=== PATIENT | male | born 1980 | race Caucasian/White ===

== ENCOUNTER 2023-08-03 08:12 | Outpatient (OUT) | payer OTHER, SELFPAY ==
[2023-08-03 08:52] LABS: Basophils Absolute Auto 0.1 10^3/uL (0.0-0.1); Basophils Percent Auto 0.8 % (0.2-2.0); Eosinophils Absolute Auto 0.4 10^3/uL (0.0-0.7); Eosinophils Percent Auto 4.4 % (0.9-7.0); Hematocrit 44.6 % (42.0-54.0); Hemoglobin 14.3 g/dL (14.0-18.0); Immature Granulocytes Abs Auto 0.05 10^3/uL (0.00-0.03); Immature Granulocytes Pct Auto 0.6 % (0.0-0.5); Lymphocytes Absolute Auto 2.1 10^3/uL (1.2-3.8); Lymphocytes Percent Auto 24.2 % (20.5-60.0); Mean Corpuscular HGB Conc 32.1 g/dL (29.9-35.2); Mean Corpuscular Hemoglobin 26.5 pg (25.9-34.0); Mean Corpuscular Volume 82.6 fL (80.0-94.0); Mean Platelet Volume 10.1 fL (9.5-13.5); Monocytes Absolute Auto 0.6 10^3/uL (0.3-0.8); Monocytes Percent Auto 7.1 % (1.7-12.0); Neutrophils Absolute Auto 5.6 10^3/uL (1.4-6.5); Neutrophils Percent Auto 62.9 % (43.0-75.0); Platelet Count 231 10^3/uL (150-450); White Blood Count 8.8 10^3/uL (4.0-11.0)
[2023-08-03 09:11] LABS: Creatinine Urine Random 56.86 mg/dL (20.00-300.00); Microalbum Creatinine Ratio Ur 22.8 mg/g (0.0-29.9); Microalbumin Urine Random <1.3 mg/dL (<=30.0)
[2023-08-03 09:14] LABS: Prostate Specific Antigen Dx 3.15 ng/mL (<=4.00)
[2023-08-03 10:36] LABS: Alanine Aminotransferase 44 U/L (16-63); Albumin Globulin Ratio 0.9; Albumin Level 3.8 g/dL (3.4-5.0); Alkaline Phosphatase 99 U/L (46-116); Aspartate Amino Transferase 16 U/L (15-37); BUN Creatinine Ratio 13.5; Bilirubin Total 0.8 mg/dL (0.2-1.0); Calcium 9.1 mg/dL (8.5-10.1); Carbon Dioxide 30.2 mmol/L (21.0-32.0); Chloride 101 mmol/L (98-107); Chol HDL Ratio 3.9; Cholesterol 177 mg/dL (<=200); Estimated GFR (African America >60 (>=60); Estimated GFR (Non-African Ame >60 (>=60); Globulin 4.3 g/dL; Glucose 99 mg/dL (74-106); HDL Cholesterol 45 mg/dL (40-60); LDL Cholesterol Calculated 125.4 mg/dL; Potassium 4.2 mmol/L (3.5-5.1); Sodium 138 mmol/L (136-145); Thyroid Stimulating Hormone 1.843 uIU/mL (0.358-3.740); Total Protein 8.1 g/dL (6.4-8.2); Triglycerides 33 mg/dL (<=150); VLDL CHOLESTEROL 6.6 mg/dL
[2023-08-04 04:07] LABS: PSA, Free 0.37 ng/mL; Prostate Specific Ag 2.8 ng/mL (0.0-4.0)
== END 2023-08-03 08:13 | disposition home or self-care (01) ==
PROVIDERS: PCP Nurse Practitioner; Visit Provider Nurse Practitioner
DX: N20.0 Calculus of kidney (principal); I10 Essential (primary) hypertension; E66.01 Morbid (severe) obesity due to excess calories; Z12.5 Encounter for screening for malignant neoplasm of prostate; R97.20 Elevated prostate specific antigen [PSA]; Z80.42 Family history of malignant neoplasm of prostate
CPT/HCPCS: 36415; 80053; 80061; 82043; 82570; 84153; 84154; 84443; 85025

== ENCOUNTER 2024-05-18 01:15 | Emergency (ER) | payer OTHER, SELFPAY ==
[2024-05-18 01:18] VITALS: BP 185/104; PULSE 103; TEMP 36.5; O2SAT 100; BMI 50.9
--- OUTSIDE RECORDS SUMMARY | 2024-05-18 01:23 | XMS_ITS | CCD ---
Author Organization [facility] ion [facility] Care Team Providers Care Emotional Support Teacher Name Role Phone BLAINE TOSHIA Paula Primary Care Physician KARLASENG, [facility] TOSHIA Primary Care Unavailable FRANK, DR CK López Admitting Unavailable FRANK, DR CK López Attending Unavailable FRANK, DR CK López Consulting Unavailable KELVIN CASIANO Consulting Unavailable COOK, DR MARCIAL Bundy Admitting Unavailable COOK, DR MARCIAL Bundy Attending Unavailable [facility] T[facility]IA Primary Care Unavailable COOK, DR MARCIAL Bundy Consulting Unavailable DAVIS, DR RY Cantor Consulting Unavailable BROWN, RY Consulting Unavailable COOK, DR MARCIAL Bundy Admitting Unavailable COOK, DR MARCIAL Bundy Attending Unavailable AICHHOLZ, [facility] TOSHIA Primary Care Unavailable COOK, DR MARCIAL Bundy Consulting Unavailable ZIEBER, DR ALLIE López Consulting Unavailable COOK, Marcial Bundy Attending Unavailable COOK, Marcial P Attending Unavailable COOK, Marcial P Attending Unavailable COOK, Marcial P Attending Unavailable COOK, Marcial P Attending Unavailable COOK, Marcial P Admitting Unavailable COOK, Marcial P Admitting Unavailable COOK, Marcial P Referring Unavailable COOK, Marcial P Attending Unavailable Jevon Holley MD Primary Care Provider [phone] Aicholdominique COLUMNIST/COMMENTATOR, Toshia Unavailable BLAINE, TOSHIA Attending Unavailable Aichholz COLUMNIST/COMMENTATOR, Toshia Unavailable Jevon Holley MD Primary Care Provider [phone] Aicholdominique COLUMNIST/COMMENTATOR, Toshia Unavailable Allergies Allergy Classification Reported Allergen(s) Allergy Type Date of Onset Reaction(s) Facility (1 source) No Known Medication Allergies; Translations: [No Known Medication Allergies] Propensity to adverse reactions (disorder) [facility] Repository Medications Current Medications Medication Drug Class(es) Dates Sig (Normalized) Sig (Original) acetaminophen 325 mg / oxyCODONE hydrochloride 5 mg oral tablet (3 sources) Opioid Agonist Start: 09-14-2021 take 1 tablet by mouth every six hours as needed for pain acetaminophen-oxy codone 325 mg-5 mg oral tablet 1 tab(s), Oral, q6hr as needed for pain, Refill(s) 0 Start Date: 09/14/21 Status: Ordered amLODIPine 10 mg oral tablet (17 sources) Dihydropyridine Calcium Channel Dhara Start: 01-21-2024 End: 07-18-2024 take 1 tablet by mouth once daily amLODIPine (Norvasc) 10 MG tablet Indications: Essential hypertension (CMS/HCC) Take 1 tablet (10 mg) by mouth Daily 90 tablet 04/19/2024 07/18/2024 Active Start: 05-13-2023 End: 08-11-2023 take 1 tablet by mouth in the morning amLODIPine (Norvasc) 10 MG tablet Indications: Essential (primary) hypertension (CMS/HCC) , Essential hypertension (CMS/HCC) Take 1 tablet (10 mg) by mouth in the morning. 90 tablet 0 05/13/2023 08/11/2023 Active Start: 09-14-2021 take 1 tablet by jessica th once daily amLODIPine 5 mg Tab 5 mg = 1 tab(s), Oral, Daily, Refills(s) 0, High blood pressure Start Date: 09/14/21 Status: Ordered ascorbic acid 1000 mg oral tablet (3 sources) Vitamin C take 1 tablet by mouth once daily Ascorbic Acid (vitamin C) 1000 MG tablet Take 1,000 mg by mouth Daily Active ciprofloxacin 500 mg oral tablet (3 sources) Quinolone Antimicrobial Start: take 1 tablet by mouth every twelve hours ciprofloxacin 500 mg Tab 500 mg = 1 tab(s), Oral, q12hr, Refills(s) 0, Infection or prophylaxis for antibiotics Start Date: 09/14/21 Status: Ordered Fish Oils (9 sources) Start: take 1 capsule by mouth once daily Fish Oil 500 mg oral capsule 500 mg = 1 cap(s), Oral, Daily, Prophylaxis Start Date: 11/04/21 Status: Ordered hydroCHLOROthiazide 25 mg / metoprolol tartrate 100 mg oral tablet (12 sources) Thiazide Diuretic, beta-Adrenergic Dhara Start: take 1 tablet by mouth twice daily hydrochlorothiazide -metoprolol 25 mg-100 mg oral tablet 1 tab(s), Oral, BID, Refill(s) 0, High blood pressure Start Date: 09/14/21 Status: Ordered hyoscyamine sulfate 0.125 mg oral tablet (2 sources) Start: take 1 tablet by mouth four times daily Levsin 0.125 mg SL Tab 0.125 mg = 1 tab(s), Oral, QID, # 20 tab(s), Refills(s) 0, Pharmacy: [facility]/pharmacy #[id number], 184, cm, 09/15/21 16:31:00 EDT, Height/Length Dosing, 170.4, kg, 09/15/21 16:31:00 EDT, Weight Dosing Start Date: 09/16/21 Status: Ordered Start: 09-14-2021 take 1 tablet by jessica th four times daily as needed for muscle spasms Levsin 0.125 mg oral tablet 0.125 mg = 1 tab(s), Oral, QID, PRN for spasm, # 10 tab(s), Refills(s) 0, Pharmacy: [facility]/pharmacy #[id number], 184, cm, 09/14/21 8:22:00 EDT, Height/Length Dosing, 173.4, kg, 09/14/21 8:22:00 EDT, Weight Dosing Start Date: 09/14/21 Status: Ordered ketorolac tromethamine 10 mg oral tablet (2 sources) Nonsteroidal Anti-inflammatory Drug, Cyclooxygenase Inhibitor Start: 09-16-2021 ketorolac 10 mg Tab 10 mg = 1 tab(s), Oral, q6hr, PRN Pain 8-10, # 20 tab(s), Refills(s) 0, Pharmacy: [facility]/pharmacy #[id number], 184, cm, 09/15/21 16:31:00 EDT, Height/Length Dosing, 170.4, kg, 09/15/21 16:31:00 EDT, Weight Dosing Start Date: 09/16/21 Status: Ordered Start: 09-14-2021 ketorolac 10 m g Tab 10 mg = 1 tab(s), Oral, q6hr, PRN Pain 8- 10, # 20 tab(s), Refills(s) 0, Pharmacy: [facility]/pharmacy #[id number], 184, cm, 09/14/21 8:22:00 EDT, Height/Length Dosing, 173.4, kg, 09/14/21 8:22:00 EDT, Weight Dosing Start Date: 09/14/21 Status: Ordered lisinopril 40 mg oral tablet (15 sources) Angiotensin Converting Enzyme Inhibitor Start: 07-25-2023 End: 07-17-2024 take 1 tablet by mouth once daily lisinopril 40 MG tablet Indications: Essential hypertension (CMS/HCC) Take 1 tablet (40 mg) by mouth Daily 90 tablet 04/18/2024 07/17/2024 Active Start: 09-14-2021 take 1 tablet by jessica once daily lisinopril 40 mg Tab 40 mg = 1 tab(s), Oral, Daily, Refills(s) 0, High blood pressure Start Date: 09/14/21 Status: Ordered 24 hr metoprolol succinate 50 mg extended release oral tablet (10 sources) beta-Adrenergic Dhara Start: 01-21-2024 End: 07-18-2024 take 1 tablet by mouth once daily metoprolol succinate XL (Toprol-XL) 100 MG 24 hr tablet Indications: Essential hypertension (CMS/HCC) Take 1 tablet (100 mg) by mouth Daily 90 tablet 04/19/2024 07/18/2024 Active Start: 01-21-2024 End: 07-18-2024 take 1 tablet by mouth every twenty-four hours in the morning metoprolol succinate XL (Toprol-XL) 50 MG 24 hr tablet Indications: Essential hypertension (CMS/HCC) Take 1 tablet (50 mg) by mouth in the morning. 90 tablet 04/19/2024 07/18/2024 Active Start: 05-13-2023 End: 08-11-2023 take 1 tablet by mouth every twenty-four hours in the morning metoprolol succinate XL (Toprol-XL) 100 MG 24 hr tablet Indications: Essential (primary) hypertension (CMS/HCC) , Essential hypertension (CMS/HCC) Take 1 tablet (100 mg) by mouth in the morning. 90 tablet 0 05/13/2023 08/11/2023 Active Start: 05-13-2023 End: 08-11-2023 take 1 tablet by mouth every twenty-four hours in the morning metoprolol succinate XL (Toprol-XL) 50 MG 24 hr tablet Indications: Essential (primary) hypertension (CMS/HCC) , Essential hypertension (CMS/HCC) Take 1 tablet (50 mg) by mouth in the morning. 90 tablet 0 05/13/2023 08/11/2023 Active Multiple Vitamin (ONE-A-DAY MENS PO) (3 sources) Multiple Vitamin (ONE-A-DAY MENS PO) Take by mouth Active Multivitamin preparation (9 sources) Start: 2 take 1 capsule by mouth once daily multivitamin 1 cap, Oral, Daily, Prophylaxis Start Date: 11/04/21 Status: Ordered [place]-3 Fatty Acids (Fish Oil) 1000 MG capsule delayed-release (3 sources) [place]-3 Fatty Ac ids (Fish Oil) 1000 MG capsule delayed-release Take by mouth Active phenazopyridine hydrochloride 100 mg oral tablet (1 source) Start: 2 End: 2 take 1 tablet by mouth twice daily Pyridium 100 mg Tab 100 mg = 1 tab(s), Oral, BID, X 10 day(s), # 20 tab(s), Refills(s) 0, Pharmacy: [facility]/pharmacy #[id number], 184, cm, 09/15/21 16:31:00 EDT, Height/Length Dosing, 170.4, kg, 09/15/21 16:31:00 EDT, Weight Dosing Start Date: 09/16/21 Stop Date: 09/26/21 Status: Ordered tamsulosin hydrochloride 0.4 mg oral capsule (3 sources) alpha-Adrenergic Dhara Start: 2 take 1 capsule by mouth once daily tamsulosin 0.4 mg Cap 0.4 mg = 1 cap(s), Oral, Daily, Refills(s) 0, Other (see comment) Start Date: 09/14/21 Status: Ordered Problems Active Problems Problem Classification Problem Date Documented Da te Episodic/Chronic Essential hypertension (20 sources) Hypertensive disorder; Translations: [Essential (primary) hypertension] Onset: 09-14-2021 09-15-2021 Chronic Other diseases of kidney and ureters (1 source) Urinary tract obstruction; Translations: [Hydronephrosis with renal and ureteral calculous obstruction] Onset: 06-14-2022 Episodic Other injuries and conditions due to external causes (3 sources) Foreign body in bladder; Translations: [Foreign body in bladder, initial encounter] Onset: 08-15-2022 Episodic Other nutritional; endocrine; and metabolic disorders (3 sources) Morbid obesity; Translations: [Morbid (severe) obesity due to excess calories] Onset: 07-25-2023 07-25-2023 Chronic Past or Other Problems Problem Classification Problem Date Documented Da te Episodic/Chronic Abdominal pain (3 sources) Unspecified abdominal pain; Translations: [UNSPECIFIED ABDOMINAL PAIN] Onset: 09-12-2021 Episodic Calculus of urinary tract (20 sources) Kidney stone; Translations: [Calculus of kidney] Onset: 09-14-2021 Episodic Other aftercare (1 source) Other terminal computer operator (current) drug therapy; Translations: [OTH ACCOUNTING CONSULTANT CURRENT DRUG THERAPY] Onset: 09-14-2021 Episodic Other diseases of kidney and ureters (11 sources) Hydronephrosis; Translations: [Hydronephrosis with ureteral stricture, not elsewhere classified] Onset: 02-08-2022 Episodic Other screening for suspected conditions (not mental disorders or infectious disease) (6 sources) Patient encounter status; Translations: [Encounter for screening for malignant neoplasm of prostate] Onset: 07-25-2023 07-25-2023 Episodic Residual codes; unclassified (3 sources) Family history of prostate cancer; Translations: [Family history of malignant neoplasm of prostate] Onset: 08-03-2023 08-03-2023 Episodic Results Test Name Value Interpretation Reference Range Facility Consent for Procedure/Surger yon 08-15-2022 Consent for Procedure/Surgery [id number]: 127 Normal [facility] Patient Educationon 08-16-19 Patient Education Urology Kidney Stones Kidney stones are rock-like masses that form inside of the kidneys. Kidneys are organs that make pee (urine). A kidney stone may move into other parts of the urinary tract, including: ? The tubes that connect the kidneys to the bladder (ureters). ? The bladder. ? The tube that carries urine out of the body (urethra). Kidney stones can cause very bad pain and can block the flow of pee. The stone usually leaves your body (passes) through your pee. You may need to have a doctor take out the stone. What are the causes? Kidney stones may be caused by: ? A condition in which certain glands make too much parathyroid hormone (primary hyperparathyroidism). ? A buildup of a type of crystals in the bladder made of a chemical called uric acid. The body makes uric acid when you eat certain foods. ? Narrowing (stricture) of one or both of the ureters. ? A kidney blockage that you were born with. ? Past surgery on the kidney or the ureters, such as gastric bypass surgery. What increases the risk? You are more likely to develop this condition if: ? You have had a kidney stone in the past. ? You have a family history of kidney stones. ? You do not drink enough water. ? You eat a diet that is high in protein, salt (sodium), or sugar. ? You are overweight or very overweight (obese). What are the signs or symptoms? Symptoms of a kidney stone may include: ? Pain in the side of the belly, right below the ribs (flank pain). Pain usually spreads (radiates) to the groin. ? Needing to pee often or right away (urgently). ? Pain when going pee (urinating). ? Blood in your pee (hematuria). ? Feeling like you may vomit (nauseous). ? Vomiting. ? Fever and chills. How is this treated? Treatment depends on the size, location, and makeup of the kidney stones. The stones will often pass out of the body through peeing. You may need to: ? Drink more fluid to help pass the stone. In some cases, you may be given fluids through an IV tube put into one of your veins at the hospital. ? Take medicine for pain. ? Make changes in your diet to help keep kidney stones from coming back. Sometimes, medical procedures are needed to remove a kidney stone. This may involve: ? A procedure to break up kidney stones using a beam of light (laser) or shock waves. ? Surgery to remove the kidney stones. Follow these instructions at home: Medicines ? Take nfno-lfh-pmqeguj and prescription medicines only as told by your doctor. ? Ask your doctor if the medicine prescribed to you requires you to avoid driving or using heavy machinery. Eating and drinking ? Drink enough fluid to keep your pee pale yellow. You may be told to drink at least 8?10 glasses of water each day. This will help you pass the stone. ? If told by your doctor, change your diet. This may include: ? Limiting how much salt you eat. ? Eating more fruits and vegetables. ? Limiting how much meat, poultry, fish, and eggs you eat. ? Follow instructions from your doctor about eating or drinking restrictions. General instructions ? Collect pee samples as told by your doctor. You may need to collect a pee sample: ? 24 hours after a stone comes out. ? 8?12 weeks after a stone comes out, and every 6?12 months after that. ? Strain your pee every time you pee (urinate), for as long as told. Use the strainer that your doctor recommends. ? Do not throw out the stone. Keep it so that it can be tested by your doctor. ? Keep all follow-up visits as told by your doctor. This is important. You may need follow-up tests. How is this prevented? To prevent another kidney stone: ? Drink enough fluid to keep your pee pale yellow. This is the best way to prevent kidney stones. ? Eat healthy foods. ? Avoid certain foods as told by your doctor. You may be told to eat less protein. ? Stay at a healthy weight. Where to find more information ? National Kidney Foundation (NKF): www.kidney.org ? [employer] (UCF): www.urologyhealth.org Contact a doctor if: ? You have pain that gets worse or does not get better with medicine. Get help right away if: ? You have a fever or chills. ? You get very bad pain. ? You get new pain in your belly (abdomen). ? You pass out (faint). ? You cannot pee. Summary ? Kidney stones are rock-like masses that form inside of the kidneys. ? Kidney stones can cause very bad pain and can block the flow of pee. ? The stones will often pass out of the body through peeing. ? Drink enough fluid to keep your pee pale yellow. This information is not intended to replace advice given to you by your health care provider. Make sure you discuss any questions you have with your health care provider. Document Revised: 11/22/2021 Document Reviewed: 11/22/2021 [employer] Patient Education ? 2022 [employer] Normal [facility] Urology Office/Clinic Noteon 08-15-2022 Urology Office/Clinic Note Chief Complaint Cysto/Lt. stent removal HPI Staff Cysto/Lt stent removal. ABX taken. KUB done 07/07/22 shows question 3-4 mm calculus along the distal left ureteral stent. Left renal calculi. No BPH medications. History of Present Illness I have reviewed and verified the staff HPI to be accurate for this encounter. Review of Systems PHQ Score Initial Depression Screen Score: 0 ROS - Provider Constitutional: denies weight loss, denies hot flashes. Eyes: denies eye problems. Gastrointestinal: denies nausea, denies vomiting. Cardiovascular: denies chest pain or angina. Integumentary: no dryness Musculoskeletal: denies musculoskeletal symptoms. ENMT: denies otolaryngeal symptoms. Respiratory: no shortness of breath. Heme/Lymph: denies easy bleeding tendency, denies easy bruising tendency. Psychiatric: no confusion, no anxiety. Genitourinary: denies dysuria, denies hematuria, denies discharge, denies urinary frequency, denies urinary hesitancy, denies nocturia, denies incontinence, denies genital sores, denies decreased libido, and denies erectile dysfunction. Physical Exam Vitals & Measurements HT: 72 in HT: 184 cm WT: 175 kg WT: 385 lb BMI: 51.69 General Appearance: alert, no distress, well nourished, well developed male. Genitourinary: normal scrotum, normal testes, normal urethra, normal epididymis, normal vas deferens/spermatic cord. Flank Pain: none. Bladder: nonpalpable. Procedure Operative Information Anesthesia Type: Local Procedure: Local Cystoscopy with Stent Removal Complications: None Surgical risks, benefits, details of the procedure have been explained to the patient. Full informed consent has been obtained. Intraoperative Information Prepped: Patient is placed in supine position. The patient was prepped with the Betadine solution. Anesthesia: 2% Xylocaine Jelly per urethra. Procedure: Cystoscopy and left stent removal. The flexible Cystoscope was passed in retrograde fashion into the bladder without difficulty. The bladder was viewed in entirety and found to be without tumors or stones. Mild inflammation was seen surrounding the orifice with the stent seen protruding from it. The stent was then grasped and removed in its entirety. Specimens Removed: None Postoperative Information The patient tolerated the procedure well and was subsequently discharged home. Assessment/Plan 1. Hydronephrosis due to obstruction of ureter (N13.1: Hydronephrosis with ureteral stricture, not elsewhere classified) PO to Cysto/L ESWL/L Stent change done 06/09/22 S/p Cysto/Left ESWL/stent done 12/23/21. KUB done 02/02/22 shows apparent migration of proximal left ureteral stone to the distal third of the left ureter. Pt states that he is tolerating the stent well. 2. Kidney stones (N20.0: Calculus of kidney) S/p Cysto/Left ESWL/stent done 12/23/21. KUB done 02/02/22 shows apparent migration of proximal left ureteral stone to the distal third of the left ureter. Stone analysis done 04/29/2022 showed Ca OX Monohydrate 75%, Ca Ox Dihydrate 20% AND hydroxyapatite 5%. 3. Foreign body in bladder (T19.1XXA: Foreign body in bladder, initial encounter) Cysto/Stent removal done IO today w/o complications. Overall the patient tolerates the stent removal quite well. He has passed at least 2 fragments so we assume that the stone has completely and get out of the ureter. Stent is removed without difficulty. We will see him in 6 months with a KUB. He already has the request sent for the 24-hour urine analysis and he will get the blood work at [facility] as well at his convenience. Depending on findings we may have to discuss results of the metabolic work-up prior to his 6-month visit. He will finish antibiotics today and tomorrow for antibiotic prophylaxis Follow-up With When Contact Information JAIME DAO, Marcial Bundy, CHLOE In 6 months 02/15/[address] [place] [id number] Additional Instructions: KUB Metabolic work-up Patient Education Kidney Stones, [id number] Raina Thomas , personally scribed for Dr. Sandoval on 08/15/2022 07:27:12. . Documentation recorded by the Raina moreno MA, accurately reflects the services(s) I performed and decisions made by me. Authenticated by Dr. Sandoval on 08/15/2022 07:28:28. Problem List/Past Medical History Ongoing Foreign body in bladder Hydronephrosis due to obstruction of ureter Kidney stones Historical No qualifying data Procedure/Surgical History Cystoscopic insertion of ureteric stent (06/09/2022), ESWL - Extracorporeal shockwave lithotripsy for renal calculus (12/23/2021), Cystoscopy (09/16/2021), Breast reduction, Closed fracture head of femur, Cyst. Medications amLODIPine 5 mg Tab, 5 mg= 1 tab(s), Oral, Daily Fish Oil 500 mg oral capsule, 500 mg= 1 cap(s), Oral, Daily hydrochlorothiazide-meto prolol 25 mg-100 mg oral tablet, 1 tab(s), Oral, BID (more content not included)... [facility] Comment on above: Result Comment: Elec tronically Signed By: Marcial SANDOVAL MD\.br\Date and Time Signed: 08/15/22 07:29 EDT\.br\Electronically Co-Signed By: Raina Velarde MA\.br\Date and Time Co-Signed: 08/15/22 07:27 EDT Pre-Certification Formon Pre-Certification Form [id number]#[id number]:1 27 [facility] Coding Summary.on 07-14-2022 Coding Summary. CD:[id number] Ww+P GhlYWQ+FW4XAOVeH94lqOTcb C7eY8HQLXoSZfxkBDHIWTnVR wAjwkJbHS5oiPBfMEBw IC8+JT9nGIQhZbrrhZIwj5S7 nRO7B57jcx8gMVmtyBL6IAHn QuLctbavj7obqDk1NEobPfhm OyBt NRTqlY27OYW2dF76Ta77jXQe pEIca1xmbJa5PhRyTTFsUAQ9 lWniZMmcs4BdURWrS01wtLOy c2U6 EIMddZphtBOxZsGizIS2dG4w CLeyflawp8mpbnhvIco4tx42 gOBjo4B2uXW8M0TeroQ5NXMi bGQg ZyqvvQFGhO7rnneaz9iudwtr XmJuCJPpNFv1LRe2GRKpxQwa FrVxZO91PSD6RJFhltFvV1Kl LWFs kYwvFrJ0d5N5Os9KH8MVDdch W6SUONYKSQtptPE+BZ32jw54 W3OwQvcuJkh6AFPwRIS7yQQ1 aD0n FJIkAHroi4C8hPJ6I0OyfkTy tb8gq7vzLIYyUKelC99hkBWt g0Q1WJHcgTP7RRXadQpbNlJb aG93 Oyc+UVUuuGmsw8JdNlffa6mn j7qidBw6HidvKXJzgqZptVdc PLO1y4ZoIa7iFOGioJP2jYT6 aD0i RcTsNmE6GHkpN685IqGyuUEv SslxC86uV9WqpQC+PHRyPjx0 HEUbeBmtYF6uT4PsHCMngwlt bGVm yKkuOW4hCBIljfbkXZGwkP9x ZCBcR2i3ImYsMvH3MQfmV0Yr SSZnyfuzEg90iE4fMkYcOyE7 MGlu H7BhdzO6XPUzbWPvWGczAII3 T10aj5V6XBMdOSPgAML6kPO4 fU5idUbalbwbmCNglLhmjgMu dGlj YKvbDRxxY556YNLjjXhbKuNk ZGluZyBEYXRlOiAgMDQvMTMv MjAyMzwvdGQ+JEMoIDN9wZnk PSAn uYPaOXcqNc2onUkvzQooRV6l XXUnwbtuTVIuiD0zQXNpyVDx yThxSK5cJXImpvsnc249HdZt MHB0 QZKcvTLfE7YuoQ4qPvZnEJFd TDPlR5IhyQWaJQzbX145EWbv GoT3XDCnsaBrL6OkEQGljChx OiB0 w1P8Fn6Ms7MwbwaiX3UpwGRi XoLnLxspXDe0G9TzHdwceYN+ KX18SVNyAY14EOw0YGU3yLdb PSdi MVOqU2CxzV9zYnWxMCQiHRQm Oyc+PHRhYmxlIHdpZHRoPScx XCZjImSsqNeeVO0uSk7bADTq LWNv uDcuiKZvCfPkw9wqGVEdJVox PC8taZlqD7FpdGD6YDDon2s3 Fw46U97fT4VrjFE+PGNvbCB3 aWR0 yO8sSpTdEgI4THanL704DxBw yRGyTnhsz0esc0fjdDp3FqS2 YEHgwpCwgSoySNN0x7PaSk80 Y29s IHdpZHRoPSIxNSUiIHZhbGln cg4crX9zUo1+AOCluIN4qAH1 zR5hTuHdCeY2DHlwE934DqEi cCIv Tavkn4odv6porOe8SjLtKRDj tjYsaTyqETU6k9HoPa97E9Pa qKlrn8OfDcu0qt33dDUej9E4 bGU9 F1HzGPMacsdjbNJtjOxyVF3s GRQckgrcUIHsxQ8vVJYdA3c5 PrPmPzO1RNchC8RgprL4JZEa bGQg UHSafJPByO9rtumfc0saqdno DtBhVYSsVLz9IHm2PTUhaSnt IvRcUGI7FqQ4VBJ7qPZmcF9t bGln hawqyZ7uKpa+FNS9jJLmeETB VE6cRqiouCF+IPKbJXC9eTuu TVzdPPPdaA1rHDYdR7y2GnDk LjA1 MTczE6IcilH2GNWcuPIcMMNa iDJQkK8dlwiwu0zazgblZgEq IYWsUWy2MPa9THLbkUlsXyZs ZWZ0 BwG0WHZ3sUKalB1feDeqzvyv kY4hRvk+SqzglNcvXXP1PXj6 H8GmKbw5DPZqrWsjAD7xtVSh ZGlu Mp1odBlugBulZT4tSSGupacs d175MjMpw8uqIJXrhMQsECtf MLU2D80tk5P5DRAaIQAfLJZ7 dGV4 jY8vmPfdxrrpkJVgeKxdzwOk rMhbXNhwUFiqU748GBZumZxq NbFsTIm0I5OiZnu8KGNskZbc ZT0n lUGzVJvnGu8zqPjnwSalKH5g HMFceuewr232JjYcl0ykRVYc qJQmSVqvVML3E32ln8B6DIHf MDAw NWT7hRY1fN0jxQpnpbznkGIv hPzdorOoqJjzFSpvJHajA289 BKPazYteCmPyrLd3W5HzQrn4 ZCBz xZsxZI9llHSqSNerVp8nmQpw pQvmBN6pOMAysyhaz638MuRd s3pjGEEagLSiOTnzPVE6K03k b3I6 DGPuWGUmEGJ1uWB9cZ9sxMur bjogbGVmdDsgdmVydGljYWwt XIuaQ081FTWtqZsbBaKjdPim bnQg KMwcTNv5E7KyBtbndLB+PC90 QSJsSH12rUZtzPOuk2ankZx5 EsAbBYJvYPJ2xXxbUUymd5Kb ZXIt O98dvIRdp3A4YSPvgGeowFWp EgDchFH5aF3iOYjhucamd9wh ljdtTtbfi4hgbg14oJ87S15g IHdp VVLuFGNnGHJeTMYhoNwuzq1u uY4vOu7+SOMmgCZ6kBI0kE0m BGTlSlG9KCacZ110PpUefCQl Pjxj b4xgg5tuuGs5XoR3IHTkuhQa cGpcQPZ8a3AoRs32G27vWEbt DOXyHOEnWOKwCSLrdRmqlg8d dG9w Ii8+WARlqAM2wUK5lB0qOtSx KxA8VHdjY464IoGriXUlKhvf N12iH2OlcNI+DUNhQbg0MADa dHls WN4qdRSgMJitOp3xJPD3ZqHy XlOrFCiiR3FrCNKmjxhhtmsp dNE7FQQoTLBiwN23Uq1fwGlq MTBw lGZIcF2breguu9eievpiFmUo YCIlYNi4VLd7EETxqNkdWfDo IJU2QkN6VYR9wSFubJ7cfZaj bjog aS8sT1JhRZCthphtQe05pE1l OgLtWrS0NMrdSjt+RElDSywg AVgVN9TAPVNTXP86JK72gMHv c3R5 cQJ1Q7ZvWEEgrswtudkmyUQ6 WZWaFJIhzY11sSFqPRerOj8e b7E7s450HFDiBKQavO28Uv9p dDog YDPmnZQNvI1hruavd2otvgld RfOdOZIcQZi2DWb1EGYjcQpj EcDaCJP3JpI5HZR0kGAneD9d bGln okxdsD2eRxf+MDYvMTgvMTk3 OTwvdGQ+YSNmMMB2kBglAYww UKWfkF5oXJKiC5j6UzMkNuQ4 MGlu C9EbTOUrewziGp20uZ4vKbHt DqW4ZOrbT9FuacC1SHVfrMEf GLisFCH8S58kh3R1GLSwQKBh MDA7 sLL3mV5xzEjrulmexTXkePtl uhZnzZfqNNmtPIdyJ137OXTb xRdkIjWbFPgeNTUhZW68KU79 dGQg w1S9eVN0Z5KgWLCukhlnswmh tYE3PCHrENEtaE72lGCoWYkg Ts5ta0F2h466BZVsSHEldU85 Zm9u gIvsCMWdmFJWkR2ngmlpy0tz ghwuFlEoJRFiJHi0IOv6UKAz xXvnIeYpGWT8KuX9RWY7pRXp bC1h wBovrcsutW0sFaj+TWFsZTwv dGQ+HHMrUWI0aEnjEDayYROi xV4vHCLcU1k2QjKxXjX0VIgd O3Bh PISimeihGp48cZ7mBqDoTyH7 ZNwcJ2HiddO3RLGuhMIbHMcn AVZ8L86xe6B3XSGeBBKbXKC5 dGV4 jH7utWkuybvjiSMaaPkdwdWc vCovEWkgVThpT349QWKvuCfe Ek62xRXyoVszulV9G0KiKcew dHI+ VG20AZUdHY20pOZtvPJka9an vTq9LiCtXCToPDO6kIoxSNxp a3CkGFXkI12kaMDnq5K7ZVEl bGxh lCQuUpDurCV0tK5fWCeznfvi z8lvkdlfPnyzn4pjak40lR24 M67sGXmsUIQhEGGnFQKaVIFt bGln mg7meZ5vOa0+KKKyvPL0pMR4 tC7aQaFnHpY3QSbnJ371IkZf lNWpHylvh5pqq3gjhUc1FpXr JSIg blPjjCfuXGK0h8JzUm14N10e IHdpZHRoPSIyMCUiIHZhbGln gf8ivD9xKh2+CG2dj3ckqy78 cD48 dHI+QEQySOZ1tYkaPHraNZZx qW1zPCirLjA5VLQpDgWzrR49 eGFwXGorZy7ueAsboJxzEA1v NTBp xnkjx873TtNid3qfVGIpyETt ZZynMKT3G82wr6D6THEsLSSb KHE7rXT8eT5urScekjtjdCMj dDsg irOhsZvxZJnkBIvnO651COMc aBodUmVkgKSmH3ocseIHBF5x OjwvdGQ+WGYlUQV6iQpmHDde YWRk kP9kZSLrC2z6QaWsVcV5BKfs D0ZjzcI6IYQniHUsGZYjrGEO wZ1wxwpje6eazwitVyBkOFZl MDt0 LNd1TXMedFcwMaQkROQ2TbV4 CLS9wDWrwI6wdScservwtO9s Oyc+RklOOjwvdGQ+PHRkIHN0 eWxl YHmrVBEflR5kYMVqB5s4WzLb EzO6CFgxI0KgerO9SRPrtLCp VLOjfBSTiQ4qcvpav8mtnmpk IzAw DMYiLZf5WCn7JTIiqKvxIzOq JSP6WcP4RPO9bROpxJ0flQzy mhbycJ8oPxg+TVJOOjwvdGQ+ PHRk GWP0zNvpPJoaPHCvuE9aNDFm C8z9EmWpFzI3JIedI7ZxerH6 KSJacCKdKEXlhZIMzC0guqdk b2xv uwehCsBaIVLnAMg9LNa7ACEk zPpoImTkEOD3LoA6EDI0qTZa iC7puRphlavpgH7jExi+UGF5 ZXI6 BF26DA14G0GqPepnnZRurBV+ PHRhYmxlIHdpZHRoPScxMDAl VdSomOkgWQ4tUj3sBOKtAUNs bGxh cHNlOiBj (more content not included)... Normal [facility] Lab Reportson 07-13-2022 Lab Reports [id number]#[id number]: 127 Normal [facility] XR Abdomen 1 Viewon 07-10-19 23 XR Abdomen 1 View Exam Date/Time: 07/07/2022 12:26 EDT Reason for Exam: Kidney Stone;Kidney stone Report IMPRESSION: QUESTION 3-4 MM CALCULUS ALONG THE DISTAL LEFT URETERAL STENT. LEFT RENAL CALCULI. EXAMINATION: XR Abdomen 1 View HISTORY: Kidney stone TECHNIQUE: Frontal view of the abdomen and pelvis COMPARISON: Abdomen radiographs 02/02/2022 FINDINGS: Left-sided ureteral stent is present. Several tiny calcifications project over the left kidney, greatest overlying the inferior pole. Question 3-4 mm calcified along the distal left ureteral stent. No calcifications identified over the left renal shadow or expected course of the left ureter Nonobstructive bowel gas pattern. No evidence of free air. No acute osseous abnormality. Ordering Provider: Marcial SANDOVAL FINAL REPORT Dictated: 07/09/2022 2:30 pm Shaun Ulloa DO Signed (Electronic Signature): 07/09/2022 2:30 pm Signed by: Shaun Ulloa DO Transcribed by: JENNIFER Technologist: WILBER Technical Comments Radiation Dose: Ka,r in mGy = na DAP = na Normal [facility] Consent for Treatmenton Consent for Treatment [id number]: 127 Normal [facility] Formson 06-29-2022 Forms [id number]#[id number] :127 Normal [facility] Patient Educationon 06-28-19 Patient Education Urology Kidney Stones Kidney stones are rock-like masses that form inside of the kidneys. Kidneys are organs that make pee (urine). A kidney stone may move into other parts of the urinary tract, including: ? The tubes that connect the kidneys to the bladder (ureters). ? The bladder. ? The tube that carries urine out of the body (urethra). Kidney stones can cause very bad pain and can block the flow of pee. The stone usually leaves your body (passes) through your pee. You may need to have a doctor take out the stone. What are the causes? Kidney stones may be caused by: ? A condition in which certain glands make too much parathyroid hormone (primary hyperparathyroidism). ? A buildup of a type of crystals in the bladder made of a chemical called uric acid. The body makes uric acid when you eat certain foods. ? Narrowing (stricture) of one or both of the ureters. ? A kidney blockage that you were born with. ? Past surgery on the kidney or the ureters, such as gastric bypass surgery. What increases the risk? You are more likely to develop this condition if: ? You have had a kidney stone in the past. ? You have a family history of kidney stones. ? You do not drink enough water. ? You eat a diet that is high in protein, salt (sodium), or sugar. ? You are overweight or very overweight (obese). What are the signs or symptoms? Symptoms of a kidney stone may include: ? Pain in the side of the belly, right below the ribs (flank pain). Pain usually spreads (radiates) to the groin. ? Needing to pee often or right away (urgently). ? Pain when going pee (urinating). ? Blood in your pee (hematuria). ? Feeling like you may vomit (nauseous). ? Vomiting. ? Fever and chills. How is this treated? Treatment depends on the size, location, and makeup of the kidney stones. The stones will often pass out of the body through peeing. You may need to: ? Drink more fluid to help pass the stone. In some cases, you may be given fluids through an IV tube put into one of your veins at the hospital. ? Take medicine for pain. ? Make changes in your diet to help keep kidney stones from coming back. Sometimes, medical procedures are needed to remove a kidney stone. This may involve: ? A procedure to break up kidney stones using a beam of light (laser) or shock waves. ? Surgery to remove the kidney stones. Follow these instructions at home: Medicines ? Take tnml-bix-kmsugxc and prescription medicines only as told by your doctor. ? Ask your doctor if the medicine prescribed to you requires you to avoid driving or using heavy machinery. Eating and drinking ? Drink enough fluid to keep your pee pale yellow. You may be told to drink at least 8?10 glasses of water each day. This will help you pass the stone. ? If told by your doctor, change your diet. This may include: ? Limiting how much salt you eat. ? Eating more fruits and vegetables. ? Limiting how much meat, poultry, fish, and eggs you eat. ? Follow instructions from your doctor about eating or drinking restrictions. General instructions ? Collect pee samples as told by your doctor. You may need to collect a pee sample: ? 24 hours after a stone comes out. ? 8?12 weeks after a stone comes out, and every 6?12 months after that. ? Strain your pee every time you pee (urinate), for as long as told. Use the strainer that your doctor recommends. ? Do not throw out the stone. Keep it so that it can be tested by your doctor. ? Keep all follow-up visits as told by your doctor. This is important. You may need follow-up tests. How is this prevented? To prevent another kidney stone: ? Drink enough fluid to keep your pee pale yellow. This is the best way to prevent kidney stones. ? Eat healthy foods. ? Avoid certain foods as told by your doctor. You may be told to eat less protein. ? Stay at a healthy weight. Where to find more information ? National Kidney Foundation (NKF): www.kidney.org ? [employer] (UCF): www.urologyhealth.org Contact a doctor if: ? You have pain that gets worse or does not get better with medicine. Get help right away if: ? You have a fever or chills. ? You get very bad pain. ? You get new pain in your belly (abdomen). ? You pass out (faint). ? You cannot pee. Summary ? Kidney stones are rock-like masses that form inside of the kidneys. ? Kidney stones can cause very bad pain and can block the flow of pee. ? The stones will often pass out of the body through peeing. ? Drink enough fluid to keep your pee pale yellow. This information is not intended to replace advice given to you by your health care provider. Make sure you discuss any questions you have with your health care provider. Document Released: 09/05/2008 Document Revised: 08/06/2019 Document Reviewed: 08/06/2019 Elsevier Patient Education ? 2019 [employer] Sandra [facility] Urology Office/Clinic Noteon 06-27-2022 Urology Office/Clinic Note Chief Complaint PO to L ESWL done 06/09/22 - he did not have KUB done for today's visit. HPI Staff Pt is PO to Cysto/L ESWL/L Stent placement done 06/09/22. No urine sample given - pt is PO. Pt did not have KUB done for today's visit. Dysuria: mild - moderate since 1st stent was placed last summer Incomplete bladder emptying: No Hematuria: No Frequency: Yes, since having stent placement Urgency: No Nocturia: No Stream: Fine Leaking: No History of Present Illness I have reviewed and verified the staff HPI to be accurate for this encounter. Review of Systems ROS - Provider Constitutional: denies weight loss, denies hot flashes. Eyes: denies eye problems. Gastrointestinal: denies nausea, denies vomiting. Cardiovascular: denies chest pain or angina. Integumentary: no dryness Musculoskeletal: denies musculoskeletal symptoms. ENMT: denies otolaryngeal symptoms. Respiratory: no shortness of breath. Heme/Lymph: denies easy bleeding tendency, denies easy bruising tendency. Psychiatric: no confusion, no anxiety. Genitourinary: denies dysuria, denies hematuria, denies discharge, denies urinary frequency, denies urinary hesitancy, denies nocturia, denies incontinence, denies genital sores, denies decreased libido, and denies erectile dysfunction. Physical Exam Vitals & Measurements HR: 79(Peripheral) RR: 16 BP: 135/84 HT: 72 in HT: 184 cm WT: 175 kg WT: 385 lb BMI: 51.69 General Appearance: alert, no distress, well nourished, well developed male. Genitourinary: normal scrotum, normal testes, normal urethra, normal epididymis, normal vas deferens/spermatic cord. Flank Pain: none. Bladder: nonpalpable. Assessment/Plan 1. Hydronephrosis due to obstruction of ureter (N13.1: Hydronephrosis with ureteral stricture, not elsewhere classified) PO to Cysto/L ESWL/L Stent change done 06/09/22 S/p Cysto/Left ESWL/stent done 12/23/21. KUB done 02/02/22 shows apparent migration of proximal left ureteral stone to the distal third of the left ureter. Pt states that he is tolerating the stent well. Pt did not obtain any recent imaging. pt states that he has been passing gravel since his procedure. Pt states that he is tolerating the stent well. Will order KUB for [facility]. 2. Kidney stones (N20.0: Calculus of kidney) S/p Cysto/Left ESWL/stent done 12/23/21. KUB done 02/02/22 shows apparent migration of proximal left ureteral stone to the distal third of the left ureter. Stone analysis done 04/29/2022 showed Ca OX Monohydrate 75%, Ca Ox Dihydrate 20% AND hydroxyapatite 5%. Discussed with pt that once his stent is removed we can do ametabolic work-up to see why he is making stones. Pt agrees with this plan. KUB ordered, and he will do this at [facility]. We did set him up for the eventual metabolic work-up. He understands the importance of the KUB so we can decide whether or not to just remove the stent or whether he will require a nephroscopic approach to remove fragments. He did void a fair amount of small fragments after the ESWL so hopefully the stone has been fragmented enough to just simply remove the stent. He agrees with the plan Follow-up With When Contact Information JAIME DAO, Marcial Bundy, URL [address] [place] [id number] Additional Instructions: will f/u after KUB Patient Education Kidney Stones, [id number] Raina Thomas , personally scribed for Dr. Sandoval on 06/27/2022 09:45:10. . Documentation recorded by the scribe, Raina Velarde MA, accurately reflects the services(s) I performed and decisions made by me. Authenticated by Dr. Sandoval on 06/27/2022 09:47:37. Problem List/Past Medical History Ongoing Hydronephrosis due to obstruction of ureter Kidney stones Historical No qualifying data Procedure/Surgical History Cystoscopic insertion of ureteric stent (06/09/2022), ESWL - Extracorporeal shockwave lithotripsy for renal calculus (12/23/2021), Cystoscopy (09/16/2021), Breast reduction, Closed fracture head of femur, Cyst. Medications amLODIPine 5 mg Tab, 5 mg= 1 tab(s), Oral, Daily Fish Oil 500 mg oral capsule, 500 mg= 1 cap(s), Oral, Daily hydrochlorothiazide-meto prolol 25 mg-100 mg oral tablet, 1 tab(s), Oral, BID lisinopril 40 mg Tab, 40 mg= 1 tab(s), Oral, Daily multivitamin, 1 cap, Oral, Daily Allergies No Known Medication Allergies Social History Alcohol - Low Risk, 11/04/2021 Current, Beer, 1-2 times per week, 09/15/2021 Substance Abuse - Denies Substance Abuse, 09/15/2021 Tobacco - Denies Tobacco Use, 09/14/2021 Never (less than 100 in lifetime) Tobacco Use:. Never Smokeless Tobacco Use:., 06/27/2022 Family History Heart disease: Father. High blood pressure: Father. Immunizations Vaccine Date Status SARS-CoV-2 mRNA (tozinameran 5y-11y) vac 05/31/2021 Recorded SARS-CoV-2 mRNA (tozinameran 5y-11y) vac 12/01/2020 Recorded SARS-CoV-2 mRNA (toziname (more content not included)... [facility] Comment on above: Result Comment: Elec tronically Signed By: Marcial SANDOVAL MD\.br\Date and Time Signed: 06/27/22 09:48 EDT\.br\Electronically Co-Signed By: Raina Velarde MA\.br\Date and Time Co-Signed: 06/27/22 09:45 EDT Operative Reporton Operative Report [id number]#[id number] :127 [facility] RAD - MISCon 06-07-2022 RAD - MISC [id number]#[id number]: 127 [facility] Lab Reportson 06-04-2022 Lab Reports [id number]#[id number]: 127 [facility] XR KUB 1 VIEWon 06-03-2022 XR KUB 1 VIEW EXAMINATION: XR KUB 1 VIEW HISTORY: Kidney stone COMPARISON: 04/29/2022 FINDINGS: KIDNEY/URETER - RIGHT: No visible renal or ureteral calcifications. KIDNEY/URETER - LEFT: Left ureteral stent. Left nephrolithiasis PELVIS: No visible ureteral calcifications. Any visible calcifications favor phleboliths. BOWEL: No abnormal dilation or deviation. BONES: No acute abnormality. OTHER: Negative. No abnormal gaseous collections. IMPRESSION: Left nephrolithiasis and stent Electronically authenticated by: RY CANNON Date: 2022-06-03 17:13 Normal [facility] BUNon 06-02-2022 Urea nitrogen [Mass/Vol] 15.0 mg/dL Normal 7.0-18.0 [facility] Comment on above: Performed By: #### B MARY RAMOS ELEC #### [facility] [address] [place] [address] Dr. Kaye Lopez CBC AUTO DIFFon 06-02-2022 BASO # 0.1 103/ul Normal 0.0-0.1 [facility] Comment on above: Performed By: #### C BC #### [facility] [address] [place] [address] Dr. Kaye Lopez Basophils/100 WBC (Bld) 0.6 % Normal 0.2-2.0 [facility] Comment on above: Performed By: #### C BC #### [facility] [address] [place] [address] Dr. Kaye Lopez EO # 0.4 103/ul Normal 0.0-0.7 [facility] Comment on above: Performed By: #### C BC #### [facility] [address] [place] [address] Dr. Kaye Lopez Eosinophils/100 WBC (Bld) 3.9 % Normal 0.9-7.0 [facility] Comment on above: Performed By: #### C BC #### [facility] [address] [place] [address] Dr. Kaye Lopez Erythrocyte distribution width (RBC) [Ratio] 13.9 % Normal 11.0-15.0 [facility] Comment on above: Performed By: #### C BC #### [facility] [address] [place] [address] Dr. Kaye Lopez Hematocrit (Bld) [Volume fraction] 41.3 % Critically low 42.0-54.0 [facility] Comment on above: Performed By: #### C BC #### [facility] [address] [place] [address] Dr. Kaye Lopez Hemoglobin (Bld) [Mass/Vol] 13.7 g/dL Critically low 14.0-18.0 [facility] Comment on above: Performed By: #### C BC #### [facility] [address] [place] [address] Dr. Kaye Lopez IG # 0.04 10e3/ul Critically high 0.00-0.03 [facility] Comment on above: Performed By: #### C BC #### [facility] [address] [place] [address] Dr. Kaye Lopez IG % 0.5 % Normal 0.0-0.5 [facility] Comment on above: Performed By: #### C BC #### [facility] [address] [place] [address] Dr. Kaye Lopez LYMPH # 2.2 103/ul Normal 1.2-3.8 [facility] Comment on above: Performed By: #### C BC #### [facility] [address] [place] [address] Dr. Kaye Lopez Lymphocytes/100 WBC (Bld) 24.5 % Normal 20.5-60.0 [facility] Comment on above: Performed By: #### C BC #### [facility] [address] [place] [address] Dr. Kaye Lopez MANUAL DIFF REQ NO Normal [facility] Comment on above: Performed By: #### C BC #### [facility] [address] [place] [address] Dr. Kaye Lopez MCH (RBC) [Entitic mass] 26.9 pg Normal 25.9-34.0 [facility] Comment on above: Performed By: #### C BC #### [facility] [address] [place] [address] Dr. Kaye Lopez MCHC (RBC) [Mass/Vol] 33.2 g/dL Normal 29.9-35.2 [facility] Comment on above: Performed By: #### C BC #### [facility] [address] [address] [address] Kaye Lopez MCV (RBC) [Entitic vol] 81.0 fL Normal 80.0-94.0 [facility] Comment on above: Performed By: #### C BC #### [facility] [address] [place] [address] Dr. Kaye Lopez MONO # 0.6 103/ul Normal 0.3-0.8 [facility] Comment on above: Performed By: #### C BC #### [facility] [address] [place] [address] Dr. Kaye Lopez Monocytes/100 WBC (Bld) 6.6 % Normal 1.7-12.0 [facility] Comment on above: Performed By: #### C BC #### [facility] [address] [place] [address] Dr. Kaye Lopez NEUT # 5.7 103/ul Normal 1.4-6.5 [facility] Comment on above: Performed By: #### C BC #### [facility] [address] [place] [address] Dr. Kaye Lopez Neutrophils/100 WBC (Bld) 63.9 % Normal 43.0-75.0 [facility] Comment on above: Performed By: #### C BC #### [facility] [address] [place] [address] Dr. Kaye Lopez Platelet mean volume (Bld) [Entitic vol] 9.8 fL Normal 9.5-13.5 [facility] Comment on above: Performed By: #### C BC #### [facility] [address] [place] [address] Dr. Kaye Lopez PLT 229 103/ul Normal 150-450 [facility] Comment on above: Performed By: #### C BC #### [facility] [address] [place] [address] Dr. Kaye Lopez RBC 5.10 106/ul Normal 4.70-6.10 [facility] Comment on above: Performed By: #### C BC #### [facility] [address] [place] [address] Dr. Kaye Lopez WBC 8.9 103/ul Normal 4.0-11.0 [facility] Comment on above: Performed By: #### C BC #### [facility] [address] [place] [address] Dr. Kaye Lopez CREATININEon 06-02-2022 Creatinine [Mass/Vol] 0.93 mg/dL Normal 0.70-1.30 [facility] Comment on above: Performed By: #### B UN, CREA, ELEC #### [facility] [address] [place] [address] Dr. Kaye Lopez EGFR-AF GERMAN >60 Normal >=60 [facility] Comment on above: Performed By: #### B UN, CREA, ELEC #### [facility] [address] [place] [address] Dr. Kaye Lopez EGFR-NON AF GERMAN >60 Normal >=60 [facility] Comment on above: Performed By: #### B UN, CREA, ELEC #### [facility] [address] [place] [address] Dr. Kaye Lopez ELECTROLYTESon 06-02-2022 Anion gap [Moles/Vol] 12.9 mmol/L Normal [facility] Comment on above: Performed By: #### U RCX #### [facility] [address] [place] [address] Dr. Kaye Lopez Chloride [Moles/Vol] 104 mmol/L Normal 98-107 [facility] Comment on above: Performed By: #### U RCX #### [facility] [address] [place] [address] Dr. Kaye Lopez CO2 [Moles/Vol] 25.8 mmol/L Normal 21.0-32.0 [facility] Comment on above: Performed By: #### U RCX #### [facility] [address] [place] [address] Dr. Kaye Lopez Potassium [Moles/Vol] 3.7 mmol/L Normal 3.5-5.1 [facility] Comment on above: Performed By: #### U RCX #### [facility] [address] [address] [address] Kaye Lopez Sodium [Moles/Vol] 139 mmol/L Normal 136-145 [facility] Comment on above: Performed By: #### U RCX #### [facility] [address] [address] [address] Kaye Lopez PROTIMEon 06-02-2022 INR Coag (PPP) [Relative time] 1.12 {INR} Normal [facility] Comment on above: Performed By: #### U RCX #### [facility] [address] [place] [address] Dr. Kaye Lopez INR GUIDELINES SEE BELOW Normal [facility] Comment on above: Result Comment: QUINN RED INR: 2.0 - 3.0 CONDITIONS NOT LISTED BELOW 2.5 - 3.5 FOR PROSTHETIC HEART VALVE REPLACEMENT 2.5 - 3.5 RECURRENT THROMBOSIS Performed By: #### U RCX #### [facility] [address] [address] [address] Kaye Lopez PT Coag (PPP) [Time] 11.8 s Critically high 9.0-11.6 [facility] Comment on above: Performed By: #### U RCX #### [facility] [address] [place] [address] Dr. Kaye Lopez PTTon 06-02-2022 aPTT Coag (Bld) [Time] 27.9 s Normal 22.3-36.2 [facility] Comment on above: Performed By: #### U RCX #### [facility] [address] [place] [address] Dr. Kaye Lopez XR CHEST 2 Von 06-02-2022 XR CHEST 2 V EXAM: XR CHEST 2 V HISTORY: . Kidney stone . COMPARISON: None. TECHNIQUE: Frontal and lateral chest FINDINGS: Heart and vascularity are unremarkable. Lungs are expanded and free of focal infiltrates. No acute bony abnormality is appreciated. IMPRESSION: No acute heart or lung disease identified. Electronically authenticated by: RY WASHINGTON Date: 2022-06-02 10:55 Normal [facility] Insurance Correspondenceon 0 05-20-2022 Insurance Correspondence [id number] :127 Normal [facility] Consultation Noteon 05-13-19 Consultation Note [id number]: 127 Normal [facility] Lab Reportson 05-06-2022 Lab Reports [id number]: 127 Normal [facility] CALCULI, URINARYon 3 2,8 Dihydroxyadenine [facility] Comment on above: Performed By: #### U RCX #### [facility] [address] [address] [address] Kaye Lopez Ammonium Acid Urate Normal [facility] Comment on above: Performed By: #### U RCX #### [facility] [address] [address] [address] Kaye Lopez Bilirubin Ql (U) [facility] Comment on above: Performed By: #### U RCX #### [facility] [address] [address] [address] Kaye Lopez CaHPO4 (Brushite) [facility] Comment on above: Performed By: #### U RCX #### [facility] [address] [address] [address] Kaye Lopez Calcium Bilirubinate [facility] Comment on above: Performed By: #### U RCX #### [facility] [address] [address] [address] Kaye Lopez Calcium Carbonate [facility] Comment on above: Performed By: #### U RCX #### [facility] [address] [address] [address] Kaye Lopez Calcium Palmitate [facility] Comment on above: Performed By: #### U RCX #### [facility] [address] [address] [address] Kaye Lopez Calcium Phosphate Normal [facility] Comment on above: Performed By: #### U RCX #### [facility] [facility] [address] [address] [address] Kaye Lopez Calcium Stearate Normal [facility] Comment on above: Performed By: #### U RCX #### [facility] [address] [address] [address] Kaye Lopez Carbonate Apatite Normal [facility] Comment on above: Performed By: #### U RCX #### [facility] [address] [address] [address] Kaye Lopez Cellular Material [facility] Comment on above: Performed By: #### U RCX #### [facility] [address] [place] [address] Dr. Kaye Lopez Cholesterol [facility] Comment on above: Performed By: #### U RCX #### [facility] [address] [place] [address] Dr. Kaye Lopez Comment Comment [facility] Comment on above: Result Comment: Calc ium phosphate (hydroxyl form) includes hydroxyapatite, amorphous calcium phosphate, and whitlockite. Hydroxyapatite is the most common of the calcium phosphate salts found in human kidney stones. Performed By: #### U RCX #### [facility] [address] [place] [address] Dr. Kaye Lopez Comment Normal [facility] Comment on above: Performed By: #### U RCX #### [facility] [address] [place] [address] Dr. Kaye Lopez Comment: Comment Normal [facility] Comment on above: Result Comment: Phys xeniaan questions regarding Calculi Analysis contact [facility] at: [phone]. Performed By: #### U RCX #### [facility] [address] [place] [address] Dr. Kaye Lopez Cystine Normal [facility] Comment on above: Performed By: #### U RCX #### [facility] [address] [place] [address] Dr. Kaye Lopez Disclaimer: Comment Normal [facility] Comment on above: Result Comment: This test was developed and its performance characteristics determined by [facility]. It has not been cleared or approved by the Food and Drug Administration. Performed By: #### U RCX #### [facility] [address] [place] [address] Dr. Kaye Lopez Dried Blood Normal [facility] Comment on above: Performed By: #### U RCX #### [facility] [address] [place] [address] Dr. Kaye Lopez Drug or Metabolite Normal [facility] Comment on above: Performed By: #### U RCX #### [facility] [address] [place] [address] Dr. Kaye Lopez Hydroxyapatite 5 % Normal [facility] Comment on above: Performed By: #### U RCX #### [facility] [address] [place] [address] Dr. Kaye Lopez Mg NH4 PO4 (Struvite) [facility] Comment on above: Performed By: #### U RCX #### [facility] [address] [place] [address] Dr. Kaye Lopez MgHPO4 (Newberyite) Normal [facility] Comment on above: Performed By: #### U RCX #### [facility] [address] [place] [address] Dr. Kaye Lopez Other component(s) Normal [facility] Comment on above: Performed By: #### U RCX #### [facility] [address] [place] [address] Dr. Kaye Lopez PDF . Normal [facility] Comment on above: Performed By: #### U RCX #### [facility] [address] [place] [address] Dr. Kaye Lopez Photo Comment [facility] Comment on above: Result Comment: Phot ograph will follow under a separate cover Performed By: #### U RCX #### [facility] [address] [place] [address] Dr. Kaye Lopez Please note: Comment Normal [facility] Comment on above: Result Comment: Calc osbaldo report will follow via computer, mail or commercial artist lettering delivery. Performed By: #### U RCX #### [facility] [address] [address] [address] Kaye Lopez Sodium Acid Urate Normal [facility] Comment on above: Performed By: #### U RCX #### [facility] [address] [address] [address] Kaye Lopez Triamterene [facility] Comment on above: Performed By: #### U RCX #### [facility] [address] [address] [address] Kaye Lopez Uric Acid [facility] Comment on above: Performed By: #### U RCX #### [facility] [address] [address] [address] Kaye Lopez Uric Acid Dihydrate Normal [facility] Comment on above: Performed By: #### U RCX #### [facility] [address] [address] [address] Kaye Lopez Xanthine [facility] Comment on above: Performed By: #### U RCX #### [facility] [address] [address] [address] Kyae Lopez Ca Oxalate Dihydrate 20 % [facility] Comment on above: Performed By: #### U RCX #### [facility] [address] [address] [address] Kaye Lopez Calcium Oxalate Monohydrate 75 % [facility] Comment on above: Performed By: #### U RCX #### [facility] [address] [address] [address] Kaye Lopez Color (U) Brown Normal [facility] Comment on above: Performed By: #### U RCX #### [facility] [address] [address] [address] Kaye Lopez Composition Comment [facility] Comment on above: Result Comment: Perc entage (Represents the % composition) Performed By: #### U RCX #### [facility] [address] [address] [address] Kaye Lopez Size 6x4 Normal [facility] Comment on above: Result Comment: Sing le piece received. Performed By: #### U RCX #### [facility] [address] [place] [address] Dr. Kaye Lopez Source Comment Normal [facility] Comment on above: Result Comment: Not provided Performed By: #### U RCX #### [facility] [address] [address] [address] Kaye Lopez Weight 78 mg Normal [facility] Comment on above: Performed By: #### U RCX #### [facility] [address] [address] [address] Kaye Lopez RAD - MISCon 04-29-2022 RAD - MISC [id number]: 127 Normal [facility] XR KUB 1 VIEWon 04-29-2022 XR KUB 1 VIEW EXAMINATION: XR KUB 1 VIEW HISTORY: Kidney stone COMPARISON: CT abdomen pelvis 09/13/2021 FINDINGS: KIDNEY/URETER - RIGHT: No visible renal or ureteral calcifications. KIDNEY/URETER - LEFT: Persistent 9 mm stone within left kidney. Left ureteral stent appears to be in appropriate position. PELVIS: No visible ureteral stones. Pelvic calcifications compatible with phleboliths. BOWEL: No abnormal dilation or deviation. BONES: No acute abnormality. OTHER: Negative. No abnormal gaseous collections. IMPRESSION: 1. Left ureteral stent with no visible ureteral stones; previously seen proximal left ureteral stone is no longer present. 2. Stable left nephrolithiasis. Electronically authenticated by: ALLIE MOJICA Date: 2022-04-29 10:41 Normal [facility] Coding Summary.on 03-10-2022 Coding Summary. CD:[id number] Gh0b Ww+PGhlYWQ+FX3EGHKvI56nc VEewE7XB6rBHZ1KYJTDAQXTR L8WEI8kzON0OZgsF3GccyIb QlediWPpVE83GEv9CVA5bCdp YEllhP1lqWTnL5s6NeZkPW42 yZ28WNotGVTwSsS2FdLvtcfq bWFy Z8byOeSysZBjVqi+PHRhYmxl IHdpZHRoPScxMDAlJyBzdHls OX6oKg7mRQTgIGBqkApmqNBy OiBj i7tsKFFiAAhjFC2rkIomU3Ow qSF4ZDDsj5s1Cl99cZQ+PHRk JPJ6nFmeCWddn313OhJff3ke IDM3 nFMoRAkqSRI1H36bj5I3LHCm EOOhXSB2iTX1oP3smTapdhkr Q1XsjSZzVpS9COH1wINvyZ0t bGln nlzzjP9oMds+S85GBV2JPMYV UG7VUwg6V0DiHawxvWU+PC90 AOXzRV94lXJmyHYzb7ifpAm5 JzEw QZXxUQR7hZxqXFflv4TySGSv C79ocIFok4H9RVDtxQicaMIc XwWxcDA4cB7sVKahvezzv1zi dzsn Rridh3lpml73sR31D51xLYex FFHdLXE6HGIhPNXafDetgl8k sS3rJi5+LYwvs9eax2nlfXi5 IjIw CSCnzsWbwLicGFW3t5EiVk14 J1OdcUcbj5GaCkq0pm01hIHu b7F4zPD6GUvnBOQhbC5kXRmr ZnQ6 FJJiTkBvnC34aSQtKJsnWv5c uWvwiSehPW1wXAEyfhmvWNYd sV7qWSZtfFDvqZfpYV2pEXJe bjtm a522EdKjKLI0LYIzhMDpZ2Br gO0cCrKwGFLpVURfV1IeuMZp QVujK405GTozEtB3IYPyogCv Y2Fs VQNlbBbfWrC4f5T5Mq5Um5Zy ckmpPGM6EVrwSHGhAvR8AoFj HfI8I0LzSig4SIGgfKmeSQ0r J3Bh MXRxogqhlzjrhQJ6HONkUOBg aC27kUTuYOohMg2ex5P5a037 JMCrDQNpjY81Cu8dxZnsMVCk dCBU cE7mxsdro4zendjmVpPpHKCw UIc2XKh7ODQjtAplWxDzCQP7 RaL7OZG0fTLfyM7pgSxnqoce dG9w Oyc+C67wzO0sSKZ4LTN9xirs OJJtmaMdYJ93NW58J1PoSuam dGFibGU+HXJrkpXwhWbtTF8t YmFj p4plc0TfPTouB1VxGOItZHgp Tvy7JNCpPVB3eVO7wP1pWTGu FHctq0D1pIH0V4OqkwZodl2t b2xs EXApBEpfW73crUQgn6E9FFDc yLL4MVDcjAgnIhHypZ73Vad+ LDAggNxvb5PqKuyvp9gjo6xu dGg9 MgSpGBRxtoBulBdwMJL2c1Ub Tv66Y80gBLvnPDXeHMOfQNFl SMQccOhkna1arU0sMy7+PGNv bCB3 nPP1kX7nMTLlAvI1NYkdD730 JmNszPRjSpjgj5mor2ixjDk9 VrKmEXOyhrVzwKbrKHV5s1Vp Lz48 W14nLGikQALxPGSsXXMeUJWv cEvvas4ivB2bIn0+UM5xl6tl bk67qP04tJV+MZXdPWF6nWpb PSdw GXVwnJ9rGQxgYbZ3LXRkChJy qF75bLRfSHmaGw4pcSdvnLmi YE2qPJEceyjjb724BtFel6qz IDEw iTHgFHlsFNQ1K01wx0B1BHDk XKCaFSW9kBH4fX9mqOwgetwl bGVmdDsgdmVydGljYWwtYWxp Z246 IHRvcDsnPlBhdGllbnQgTmFt DSp4T0KjVyb1FSTsrUycDN5n lTWdFQqgOj8crQsbwPbsKM9n NTBp uxwnb227SaEba9dhHHIsfXNb GVnmNMW9U01gn7M7ZQBnFWZs DSF3uQA8lY8jcXvrkpqjoNHp dDsg kgAueEmcCEbsIBxjE687DFZf dEnvRtFrsjBaQCSyoDZ0LU06 HJ40yLQcw9C8sTG9F1NcSHYb bmct zexrtPS3WJYnBAOehH96Be9l lPqbZz9iIMIsLLZ0TMAvhCRh U4VfsB6qHwXzMFOmIQMlC6Qe eHQt HDtqR327EGcuUxG9PWWgpgAz C0FsWXYaaXpxXuC8n2B3Mg9I W2A5DH86TT56eNHjf7X4yUK9 J3Bh TPBlumoztjalqTU1TYQqZVDq sO80Ra7eiRqpOu2aFUIjGGP8 HWMqlLFxM4YveC3aDmGcDZNp MDAw U2OwwZVbOSfiL881LLvnZoX2 YXXlvhIkE9MoDUNqsRnwRpQ7 m1O9Km5NKDh1LL34JX92eCLs c3R5 bPU6N3DoRIEibqyoteitkFW2 EJVkZWThhR39He1kjAmdDr3h LIPwJAS8UCArfPXrP3ZyqK4l OiAj ZFYiJRNzH5TikYVkXIkeU813 ASerLhG0SIViwtFbA3GfOCYy wEduRbY3z4N7Mr4EGTScCP24 IFR5 tRI2PP74MK25V5WhWloakXQa bGU+PHRhYmxlIHdpZHRoPScx ZGSoYzPduXkcKL5dPp3fFURk LWNv mGiasZUuQxLxh0nrTOVzRXmo GI7saDnmI2EuaIO7KFRlh4m8 Ax39I74lA8VnrYE+PGNvbCB3 aWR0 pM1iIhBdHtJ6WObgK672RcVu mZUpEfczg9ivq7hzmCu6GdX3 UWWpqyWxfNnkVCH4l7SzLr89 Y29s IHdpZHRoPSIxNSUiIHZhbGln ts5usH0aHb0+PKBaxJQ5kWN1 vD8bScTxDdZ3PJyjC165YdGf cCIv Zsqkz3ffh7dknYy4KtCfKELz owTdeQpgUNI7t2GnSt07C1Mh fKzqx6QvFhx6hl03dXMne8O2 bGU9 O4WaPMVajzbbkGVujFeqQJ4t GBEuazbeBFEipD0hGLRgY2q5 JoYmDeW9WGvcD9DkznQ7VWLg cHQg MNcrZAD0Z57dz5L0NKXhKEGs DLT0sBH3fA9cbRtfcsrxwVXq nGzsyfPzfHuxAYxmLGnvL545 IHRv eBpvQDPsnJ5cIWQgsCIfoBzn XK1fJYKdinyvSwZFE0foIZBH PH5YBOddMfsvjMU+PHRkIHN0 eWxl TBeiZMEamC1gSXLbA8w8XvYo CeS3JVcqA9WnPQBmuheoKx48 jG0nWeExYmR5DJmvM7XptfD5 IDEw wNWiLOhqKQX5J31ue0B6RGLw DGIdSPX3dZB0kD9qrPulxfpe bGVmdDsgdmVydGljYWwtYWxp Z246 GGQkkMawVpA0RgH4JsC8Vrk5 T0YcMjl3JAHjmLxwBE4ygRNv BNliEw4lhEoaeTupDX9fXTJd bjtw OKWapW8qJKInlFVmgHeyKS9n IQZxbgbcs340WpDpSEP6JTPh aFRkD5DhqY3qPdDjLXNoRIOr O3Rl tWJbGDxjG143SQybBjN2IYVy ciXbQ7DgSHKvwVyrKaD8o7H0 Sz88XvFBOCWuraptfKS+PHRk IHN0 uReiHCekTQKszA1uJASmW0v2 DtKsYbK7AYtuG3QoICBzzqdj Ja30uI1eYhHpGrF1HDpkL9Ed bnQ6 SNXkpUGvUYerBZB4R18ju0W1 LVLcZANwBYU7fEG0gX3gjUmk bjogbGVmdDsgdmVydGljYWwt YWxp X006BQHwlWrqHx7gxIQ6A5Em Gbt3XQVlaBweAG3nnYHbMTok Pv9geWnhbXkrLK5dGEYrleta YWRk oO8sCTRfyQQxuAxsTA9nGHIp buixj973NkBhZCL3GZOboQCh G4OdgR1aMtBgMFDgDPCdA1Tf eHQt FRecH606PRrzXuZ9MIBuslSx N8AiWRIxkJloFhE8w6Z3Sz5V uQNqZUHaSQ41CS09GT86D1Ha Pjwv dGFibGU+PHRhYmxlIHdpZHRo EFqnIUEzJzVfzZkgHT2zTj9k ZABeARLifQcndMMfHlUkk2kv YXBz UJadDC5hiEpaZ3XlbHS2VBGb s6u1Uh33O87eC5MqjEV+PGNv cQI9lZU0qS7aDeHsOlQ1MCfh Z249 SfMmtPWjPtrkf7joe4eqtUk3 MuCeUSWnhdJorYoeBLF3r0Xa Hv39J52aVTxhNYYkRQVxVAKv IHZh fQnjar9lfP5sWo6+PGNvbCB3 jMO6iV9gAtSlJqV5DBumU028 KsCnuODyDxtxG27uW8ZhpEH+ PHRy Mrm1XPGfbPhzRU3wzKMqJEgi Df5rGXR7AsGkJsEiPLjlT1Xr ESAvluxpbxswlSJ3AIRdIGQv aW47 Ee7ntXspMg6cWMIqORC0TPAk oSZtP6KpjB2gTpMcJLEiNKIx H4MzpDOgTRjgM004QWunLyC0 IHZl qqIhW2YeWNUebIcqGeE9w2L6 Zc6IvGpsjAOiQK7fHjXfFYm2 G1QtYfd8ZCXtcTjjNK8xnNAg ZGlu Fx7vkVbnyKbnVH4eXDRfaxml b822EbBpy2wiGKSvgBYhPAps FMT6H60of7E7MZVuHTYoNNX7 dGV4 lJ1wkJnoifqhqXDkjKpolwUr cHurODtqBQoeU602GEKvfZjz KhHFCnj7G7QwKyw6HUByxQce ZT0n hJKsFOkpOr8uqOsacIfdVD4b IKMelawml563KaSjo7aoQCOh rJSnOIjvDCX4X92za7R1LGTk MDAw YBW4tGT6lX8riRcyeupjlEEw fJfirkUjtEjeGAqcKVyxR142 RYEqhEgkMg9GKgw5S5NuJjv0 ZCBz eHdzQV3efKWyCMslOr0azAwu zPpmYW7nXWEwpgguz078VaIk s7bcVKRmjVCkXBvnWHU8U44t b3I6 RHPmUBMvMKR9lKL7vF8efVys bjogbGVmdDsgdmVydGljYWwt WZvyF311AAQbpWpkPlVnoIGm Ojwv dGQ+AW19dz41V4JnIsspQei8 FMRbROY1fSP7hR6qOSQeANph r7X9eBF6T0KwyvXeuk8ni0ib YXBz ZTog (more content not included)... Normal [facility] Patient Correspondenceon 12- 05-2022 Patient Correspondence [id number]: 127 Normal [facility] Auto Diffon 03-03-2022 Basophils/100 WBC (Bld) 0.7 % Normal 0.0-2.0 [facility] Comment on above: Order Comment: Order Added by Discern Expert. Performed By: #### 2 755339, 70747608, 23592271, 5487128, 8260372 ####[facility] [address] [place] [address] Basophils/Leukocytes Auto (Bld) [Pure # fraction] 0.1 E9/L Normal 0.0-0.2 [facility] Comment on above: Order Comment: Order Added by Discern Expert. Performed By: #### 2 286215, 92546853, 33581516, 5279677, 4096685 ####[address] [place] [address] Eosinophils/100 WBC (Bld) 4.1 % Normal 0.0-8.0 [facility] Comment on above: Order Comment: Order Added by Discern Expert. Performed By: #### 2 382545, 04256025, 67829951, 7641984, 4746438 ####[address] [place] [address] Eosinophils/Leukocyte s Auto (Bld) [Pure # fraction] 0.4 E9/L Normal 0.0-0.5 [facility] Comment on above: Order Comment: Order Added by Discern Expert. Performed By: #### 2 549500, 93225349, 21463157, 7737583, 5395345 ####[address] [place] [address] Lymphocytes/100 WBC (Bld) 19.3 % Normal 14.0-50.0 [facility] Comment on above: Order Comment: Order Added by Discern Expert. Performed By: #### 2 964220, 68136320, 75164210, 1940550, 3992699 ####[facility] [address] [place] [address] Lymphocytes/Leukocyte s Auto (Bld) [Pure # fraction] 1.9 E9/L Normal 1.0-4.0 [facility] Comment on above: Order Comment: Order Added by Discern Expert. Performed By: #### 2 026788, 68195099, 25590934, 0425128, 0330573 ####[address] [place] [address] Monocytes/100 WBC (Bld) 7.5 % Normal 4.0-14.0 [facility] Comment on above: Order Comment: Order Added by Discern Expert. Performed By: #### 2 048375, 37381205, 97282394, 7474382, 6121577 ####[address] [place] [address] Monocytes/Leukocytes Auto (Bld) [Pure # fraction] 0.7 E9/L Normal 0.2-1.0 [facility] Comment on above: Order Comment: Order Added by Discern Expert. Performed By: #### 2 585017, 38263926, 42105098, 6005221, 7641863 ####[address] [place] [address] Neutrophils/100 WBC (Bld) 68.4 % Normal 36.0-75.0 [facility] Comment on above: Order Comment: Order Added by Discern Expert. Performed By: #### 2 593472, 60933764, 06576595, 4265502, 2030648 ####[address] [place] [address] Neutrophils/Leukocyte s Auto (Bld) [Pure # fraction] 6.6 E9/L Normal 2.0-7.5 [facility] Comment on above: Order Comment: Order Added by Discern Expert. Performed By: #### 2 715870, 84581376, 45539267, 8480679, 0431118 ####[address] [address] BMPon 03-03-2022 Anion gap [Moles/Vol] 13 mmol/L Normal 6-16 [facility] Comment on above: Performed By: #### 2 665437, 86864999, 58841010, 9864871, 1817173 ####[facility] [address] [place] [address] Calcium [Mass/Vol] 8.5 mg/dL Low 8.9-11.1 [facility] Comment on above: Performed By: #### 2 841134, 38679624, 03939839, 6340118, 0046338 ####[facility] [address] [place] [address] Chloride [Moles/Vol] 102 mmol/L Normal 101-111 [facility] Comment on above: Performed By: #### 2 078581, 08522280, 50485097, 7603595, 9137966 ####[facility] [address] [place] [address] CO2 [Moles/Vol] 24 mmol/L Normal 21-31 [facility] Comment on above: Performed By: #### 2 375557, 76472498, 40588631, 9652101, 2906666 ####[facility] [address] [place] [address] Creatinine [Mass/Vol] 0.8 mg/dL Normal 0.5-1.3 [facility] Comment on above: Performed By: #### 2 455476, 36321776, 89079382, 8636488, 3526871 ####[facility] [address] [place] [address] Glucose [Mass/Vol] 97 mg/dL Normal 55-199 [facility] Comment on above: Result Comment: If t his glucose result represents a fasting glucose, interpretation should refer to the following reference range: 55-99 mg/dL Performed By: #### 2 063976, 86506733, 39277716, 3747561, 7417538 ####[facility] [address] [place] [address] Potassium [Moles/Vol] 3.3 mmol/L Low 3.5-5.3 [facility] Comment on above: Performed By: #### 2 899306, 77753258, 40853534, 9445895, 3159289 ####[facility] [address] [place] [address] Sodium [Moles/Vol] 136 mmol/L Normal 135-145 [facility] Comment on above: Performed By: #### 2 064685, 72377926, 27547723, 1299006, 2633669 ####[facility] [address] [place] [address] Urea nitrogen [Mass/Vol] 18 mg/dL Normal 5-21 [facility] Comment on above: Performed By: #### 2 378685, 97027357, 49712646, 8825990, 1207053 ####[facility] [address] [place] [address] Urea nitrogen/Creatinine [Mass ratio] 22 No Units High 10-20 [facility] Comment on above: Performed By: #### 2 095767, 96753569, 93549339, 6134590, 5603660 ####[facility] [address] [place] [address] CBC w/ Auto Diffon Erythrocyte distribution width (RBC) [Ratio] 14.2 % Normal 10.9-14.2 [facility] Comment on above: Performed By: #### 2 659989, 07844941, 29746127, 4521729, 0876630 ####[facility] [address] [place] [address] Hematocrit (Bld) [Volume fraction] 39.9 % Normal 37.7-49.0 [facility] Comment on above: Performed By: #### 2 751104, 85647412, 49372078, 7320760, 5329352 ####[facility] [address] [place] [address] Hemoglobin (Bld) [Mass/Vol] 13.9 g/dL Normal 13.5-17.5 [facility] Comment on above: Performed By: #### 2 832029, 84867122, 00721360, 5513966, 8124752 ####[facility] [address] [place] [address] MCH (RBC) [Entitic mass] 27.1 pg Normal 27.0-34.0 [facility] Comment on above: Performed By: #### 2 403735, 53889279, 91183640, 1110831, 8100354 ####[facility] [address] [place] [address] MCHC (RBC) [Mass/Vol] 34.8 g/dL Normal 31.4-36.0 [facility] Comment on above: Performed By: #### 2 581255, 59271455, 15102616, 5410351, 2833849 ####[id number] MCV (RBC) [Entitic vol] 77.8 fL Low 80.0-100.0 [facility] Comment on above: Performed By: #### 2 658505, 90744138, 77149136, 0480567, 3552510 ####[facility] [address] [place] [address] Platelet mean volume (Bld) [Entitic vol] 7.9 fL Normal 6.4-10.8 [facility] Comment on above: Performed By: #### 2 989132, 89622312, 66758167, 7638074, 3467562 ####[facility] [address] [place] [address] Platelets (Bld) [#/Vol] 224.0 E9/L Normal 150.0-500.0 [facility] Comment on above: Performed By: #### 2 714573, 67848983, 07423706, 5848111, 0749062 ####[id number] RBC (Bld) [#/Vol] 5.1 E12/L Normal 4.3-5.9 [facility] Comment on above: Performed By: #### 2 423575, 39718791, 43027776, 2972811, 8228219 ####[facility] [address] [place] [address] WBC corrected for nucl RBC Auto (Bld) [#/Vol] 9.7 E9/L Normal 4.0-11.0 [facility] Comment on above: Performed By: #### 2 945855, 65892749, 30751879, 2527328, 7876820 ####[facility] [address] [place] [address] CHEMISTRYOrdered By: SYSTEM SYSTEM on 03-03-2022 Anion gap [Moles/Vol] 13 mmol/L Normal 6 - 16 mEq/L [facility] Calcium [Mass/Vol] 8.5 mg/dL Low 8.9 - 11. 1 mg/dL [facility] Chloride [Moles/Vol] 102 mmol/L Normal 101 - 1 11 mmol/L [facility] CO2 [Moles/Vol] 24 mmol/L Normal 21 - 31 mmol/L [facility] Creatinine [Mass/Vol] 0.8 mg/dL Normal 0.5 - 1.3 mg/dL [facility] GFR/1.73 sq M.predicted among blacks MDRD (S/P/Bld) [Vol rate/Area] mL/min/1.73 m2 Normal >=59mL/min/ 1.73 m2 [facility] S GFR/1.73 sq M.predicted among non-blacks MDRD (S/P/Bld) [Vol rate/Area] mL/min/1.73 m2 Normal >=59mL/min/ 1.73 m2 [facility] Chem S Glucose [Mass/Vol] 97 mg/dL Normal 55 - 199 mg/dL [facility] Remisol Potassium [Moles/Vol] 3.3 mmol/L Low 3.5 - 5.3 mmol/L [facility]isol Sodium [Moles/Vol] 136 mmol/L Normal 135 - 145 mmol/L [facility] Urea nitrogen [Mass/Vol] 18 mg/dL Normal 5 - 21 mg/dL [facility]isol Urea nitrogen/Creatinine [Mass ratio] 22 mg/mg High 10 - 20 [facility] COAGULATIONOrdered By: Nba Garcia on 03-03-2022 aPTT Coag (PPP) [Time] 35.6 s Normal 25.1 - 36.5 second(s) [facility] Auto Coag INR Coag (PPP) [Relative time] 1.3 {INR} Invalid Interpretation Code [facility] Auto Coag PT Coag (PPP) [Time] 14.1 s High 9.4 - 1 2.5 second(s) [facility] Auto Coag Consent for Treatmenton Consent for Treatment [id number]#1.00CD: 127 Normal [facility] HEMATOLOGYOrdered By: SYSTEM SYSTEM on 03-03-2022 Basophils/100 WBC (Bld) 0.7 % Normal 0.0 - 2.0 % [facility] HemeAutoSS Basophils/Leukocytes Auto (Bld) [Pure # fraction] 0.1 E9/L Normal 0.0 - 0.2 E9/L [facility]eAutoSS Eosinophils/100 WBC (Bld) 4.1 % Normal 0.0 - 8.0 % [facility] HemeAutoSS Eosinophils/Leukocyte s Auto (Bld) [Pure # fraction] 0.4 E9/L Normal 0.0 - 0.5 E9/L [facility]eAutoSS Lymphocytes/100 WBC (Bld) 19.3 % Normal 14.0 - 50.0 % [facility] HemeAutoSS Lymphocytes/Leukocyte s Auto (Bld) [Pure # fraction] 1.9 E9/L Normal 1.0 - 4.0 E9/L [facility]eAutoSS Monocytes/100 WBC (Bld) 7.5 % Normal 4.0 - 14.0 % [facility] HemeAutoSS Monocytes/Leukocytes Auto (Bld) [Pure # fraction] 0.7 E9/L Normal 0.2 - 1.0 E9/L [facility]eAutoSS Neutrophils/100 WBC (Bld) 68.4 % Normal 36.0 - 75.0 % [facility] HemeAutoSS Neutrophils/Leukocyte s Auto (Bld) [Pure # fraction] 6.6 E9/L Normal 2.0 - 7.5 E9/L [facility] HemeAutoSS HEMATOLOGYOrdered By: Minerva Cutler on 03-03-2022 Erythrocyte distribution width (RBC) [Ratio] 14.2 % Normal 10.9 - 14.2 % [facility] HemeAutoSS Hematocrit (Bld) [Volume fraction] 39.9 % Normal 37.7 - 49.0 % [facility]eAutoSS Hemoglobin (Bld) [Mass/Vol] 13.9 g/dL Normal 13.5 - 17.5 gm/dL [facility] HemeAutoSS MCH (RBC) [Entitic mass] 27.1 pg Normal 27.0 - 34.0 pg [facility]eAutoSS MCHC (RBC) [Mass/Vol] 34.8 g/dL Normal 31.4 - 36.0 gm/dL [facility]eAutoSS MCV (RBC) [Entitic vol] 77.8 fL Low 80.0 - 100.0 fL [facility]eAutoSS Platelet mean volume (Bld) [Entitic vol] 7.9 fL Normal 6.4 - 10.8 fL [facility] HemeAutoSS Platelets (Bld) [#/Vol] 224.0 E9/L Normal 150.0 - 500.0 E9/L [facility]eAutoSS RBC (Bld) [#/Vol] 5.1 E12/L Normal 4.3 - 5.9 E12/L [facility]eAutoSS WBC corrected for nucl RBC Auto (Bld) [#/Vol] 9.7 E9/L Normal 4.0 - 11.0 E9/L [facility] HemeAutoSS PT & PTTon 03-03-2022 aPTT Coag (PPP) [Time] 35.6 second(s) Normal 25.1-36.5 [facility] Comment on above: Result Comment: Para meter 15 days - 4 weeks 1 - 5 months 6 - 11 months 1 - 5 years 6 - 10 years 11 - 17 years PTT Mean: 35.4 (27.6-45.6) Mean: 33.5 (24.8-40.7) Mean: 32.4 (25.1-40.7) Mean: 31.6 (24.0-39.2) Mean: 31.6 (26.9-38.7) Mean: 31.0 (24.6-38.4) Pediatric Reference ranges were obtained from a study by jules Aceves al. prepared from [id number] samples obtained at 7 different centers using the same coagulation reagent and instrumentation as [facility]. Currently there are no coagulation studies available worldwide for children to 14 days, and no normal ranges. Heparin therapeutic range (represented by Anti-Factor Xa activity of 0.2 - 0.4 U/mL) corresponds to PTT of 56.6 - 109.0 sec. Performed By: #### 2 [id number], [id number], [id number], [id number], [id number] ####[facility] [address] [place] [address] INR Coag (PPP) [Relative time] 1.3 {INR} Invalid Interpretation Code [facility] Comment on above: Result Comment: INR results are specifically intended to assess patients stabilized on long-term Anticoagulation therapy suggested INR?s ?Less Intensive Anticoagulation? 2.0 ? 3.0 Conventional Range 3.0 ? 4.5 Performed By: #### 2 [id number], [id number], [id number], [id number], [id number] ####[facility] [address] [place] [address] PT Coag (PPP) [Time] 14.1 second(s) High 9.4-12.5 [facility] Comment on above: Result Comment: 15 d ays - 4 weeks 1 - 5 months 6 -11 months 1 ? 5 years 6 ? 10 years 11 -17 years Mean: 11.2 (9.5 ? 12.6) Mean: 11.0 (9.7 ? 12.8) Mean: 11.0 (9.8 ? 13.0) Mean: 11.3 (9.9 ? 13.4) Mean: 11.7 (10.0 ? 14.6) Mean: 11.8 (10.0 - 14.1) Pediatric Reference ranges were obtained from a study by Matthias Zeng et al. prepared from 1437 samples obtained at 7 different centers using the same coagulation reagent and instrumentation as [facility]. Currently there are no coagulation studies available worldwide for children to 14 days, and no normal ranges. Performed By: #### 2 [id number], [id number], [id number], [id number], [id number] ####[facility] [address] [place] [address] UA With Cult Reflexon 2021 Bilirubin Ql (U) Negative Normal Negative [facility] Comment on above: Performed By: #### 1 [id number] ####[facility] [address] [place] [address] Clarity (U) CLEAR Normal Clear [facility] Comment on above: Performed By: #### 1 [id number] ####[facility] [address] [place] [address] Color (U) YELLOW Normal Yellow [facility] Comment on above: Performed By: #### 1 [id number] ####[address] [address] Epithelial cells.squamous LM.HPF (Urine sed) [#/Area] 0-2 Normal 0-2 [facility] Comment on above: Performed By: #### 1 [id number] ####[facility] [address] [place] [address] Glucose Test strip (U) [Mass/Vol] Negative Normal Negative [facility] Comment on above: Performed By: #### 1 [id number] ####[facility] [address] [place] [address] Hemoglobin Ql (U) 3+ Abnormal Negative [facility] Comment on above: Performed By: #### 1 [id number] ####[facility] [address] [place] [address] Ketones (U) [Mass/Vol] Negative Normal Negative [facility] Comment on above: Performed By: #### 1 [id number] ####[facility] [address] [place] [address] Valley.plasma/Lithiu m.RBC (Bld) [Mass ratio] 21-30 Abnormal 0-3 [facility] Comment on above: Performed By: #### 1 [id number] ####[facility] [address] [place] [address] Nitrite Ql (U) Negative Normal Negative [facility] Comment on above: Performed By: #### 1 [id number] ####[address] [address] pH (U) 5.5 [pH] Invalid Interpretation Code 5.0-9.0 [facility] Comment on above: Performed By: #### 1 [id number] ####[address] [address] Protein (U) [Mass/Vol] Negative Normal Negative [facility] Comment on above: Performed By: #### 1 [id number] ####[address] [address] Specific gravity (U) [Rel density] 1.020 Invalid Interpretation Code 1.005-1.030 [facility] Comment on above: Performed By: #### 1 [id number] ####[address] [address] Type of Urine collection method Clean Catch Normal [facility] Comment on above: Performed By: #### 1 [id number] ####[place] [id number] Urobilinogen Qn (U) 0.2 {Pratik'U}/dL Normal 0.0-1.0 [facility] Comment on above: Performed By: #### 1 [id number] ####[address] [address] WBC Auto Ql (U) Negative Normal Negative [facility] Comment on above: Performed By: #### 1 [id number] ####[address] [address] WBC LM.HPF (Urine sed) [#/Area] 0-5 Normal 0-5 [facility] Comment on above: Performed By: #### 1 [id number] ####[address] [address] URINALYSISOrdered By: Nba perez on 03-03-2022 Bilirubin Ql (U) Negative (03/03/22 3:47 PM) Normal Negative [facility] UA Auto SS Clarity (U) Clear (03/03/22 3:47 PM) Normal Clear [facility] UA Auto SS Color (U) Yellow (03/03/22 3:47 PM) Normal Yellow [facility] UA Auto SS Epithelial cells.squamous LM.HPF (Urine sed) [#/Area] 0-2 /HPF Normal 0-2/HPF [facility] UA Aut o SS Glucose Test strip (U) [Mass/Vol] Negative (03/03/22 3:47 PM) Normal Negative [facility] UA Auto SS Hemoglobin Ql (U) 3+ *ABN* (03/03/22 3:47 PM) Invalid Interpretation Code Negative [facility] UA Auto SS Ketones (U) [Mass/Vol] Negative (03/03/22 3:47 PM) Normal Negative [facility] UA Auto SS Valley.plasma/Lithiu m.RBC (Bld) [Mass ratio] 21-30 /HPF Invalid Interpretation Code 0-3/HPF [facility] UA Auto SS Nitrite Ql (U) Negative (03/03/22 3:47 PM) Normal Negative [facility] UA Auto SS pH (U) 5.5 *NA* (03/03/22 3:47 PM) Invalid Interpretation Code 5.0 - 9.0 [facility] UA Auto SS Protein (U) [Mass/Vol] Negative (03/03/22 3:47 PM) Normal Negative [facility] UA Auto SS Specific gravity (U) [Rel density] 1.020 *NA* (03/03/22 3:47 PM) Invalid Interpretation Code 1.005 - 1.030 [facility] UA Auto SS UA Spec Desc Clean Catch (03/03/22 3:47 PM) Normal [facility] UA Auto SS Urobilinogen Qn (U) 0.0146213 {Pratik'U}/dL Normal 0.0 - 1.0 EU/dL [facility] UA Auto SS WBC Auto Ql (U) Negative (03/03/22 3:47 PM) Normal Negative [facility] UA Auto SS WBC LM.HPF (Urine sed) [#/Area] 0-5 /HPF Normal 0-5/HPF [facility] UA Auto SS eGFRon 03-03-2022 GFR/1.73 sq M.predicted among blacks MDRD (S/P/Bld) [Vol rate/Area] mL/min/{1.73_m2} Normal >=59 [facility] Comment on above: Order Comment: Order added by Discern Expert. Result Comment: eGFR is race adjusted. AA=. Performed By: #### 2 [id number], [id number], [id number], [id number], [id number] ####[facility] [address] [place] [address] GFR/1.73 sq M.predicted among non-blacks MDRD (S/P/Bld) [Vol rate/Area] mL/min/{1.73_m2} Normal >=59 [facility] Comment on above: Order Comment: Order added by Discern Expert. Result Comment: Instrument Installer darrin kidney disease could be indicated at eGFR's of less than 60 mL/min/1.73m2. Kidney failure is indicated at less than 15 mL/min/1.73m2. Performed By: #### 2 [id number], [id number], [id number], [id number], [id number] ####[facility] [address] [place] [address] CHEMISTRYOrdered By: SYSTEM SYSTEM on 12-16-2021 Anion gap [Moles/Vol] 12 mmol/L Normal 6 - 16 mEq/L [facility] Chloride [Moles/Vol] 102 mmol/L Normal 101 - 1 11 mmol/L [facility] CO2 [Moles/Vol] 28 mmol/L Normal 21 - 31 mmol/L [facility] Creatinine [Mass/Vol] 1.0 mg/dL Normal 0.5 - 1.3 mg/dL [facility] Remisol GFR/1.73 sq M.predicted among blacks MDRD (S/P/Bld) [Vol rate/Area] mL/min/1.73 m2 Normal >=59mL/min/ 1.73 m2 [facility] Chem S GFR/1.73 sq M.predicted among non-blacks MDRD (S/P/Bld) [Vol rate/Area] mL/min/1.73 m2 Normal >=59mL/min/ 1.73 m2 [facility] Chem S Potassium [Moles/Vol] 4.4 mmol/L Normal 3.5 - 5.3 mmol/L [facility] Sodium [Moles/Vol] 138 mmol/L Normal 135 - 145 mmol/L [facility] Urea nitrogen [Mass/Vol] 15 mg/dL Normal 5 - 21 mg/dL [facility] COAGULATIONOrdered By: Emerson Swanson on 12-16-2021 aPTT Coag (PPP) [Time] 33.9 s Normal 25.1 - 36.5 second(s) [facility] Auto Coag INR Coag (PPP) [Relative time] 1.2 {INR} Invalid Interpretation Code [facility] Auto Coag PT Coag (PPP) [Time] 13.8 s High 9.4 - 1 2.5 second(s) [facility] Auto Coag HEMATOLOGYOrdered By: SYSTEM SYSTEM on 12-16-2021 Basophils/100 WBC (Bld) 0.9 % Normal 0.0 - 2.0 % [facility] HemeAutoSS Basophils/Leukocytes Auto (Bld) [Pure # fraction] 0.1 E9/L Normal 0.0 - 0.2 E9/L [facility] HemeAutoSS Eosinophils/100 WBC (Bld) 4.8 % Normal 0.0 - 8.0 % [facility] HemeAutoSS Eosinophils/Leukocyte s Auto (Bld) [Pure # fraction] 0.4 E9/L Normal 0.0 - 0.5 E9/L [facility] HemeAutoSS Lymphocytes/100 WBC (Bld) 25.0 % Normal 14.0 - 50.0 % [facility] HemeAutoSS Lymphocytes/Leukocyte s Auto (Bld) [Pure # fraction] 1.8 E9/L Normal 1.0 - 4.0 E9/L [facility] HemeAutoSS Monocytes/100 WBC (Bld) 8.6 % Normal 4.0 - 14.0 % [facility] HemeAutoSS Monocytes/Leukocytes Auto (Bld) [Pure # fraction] 0.6 E9/L Normal 0.2 - 1.0 E9/L [facility] HemeAutoSS Neutrophils/100 WBC (Bld) 60.7 % Normal 36.0 - 75.0 % [facility]eAutoSS Neutrophils/Leukocyte s Auto (Bld) [Pure # fraction] 4.5 E9/L Normal 2.0 - 7.5 E9/L [facility] HemeAutoSS HEMATOLOGYOrdered By: Honey Guerra on 12-16-2021 Erythrocyte distribution width (RBC) [Ratio] 14.3 % High 10.9 - 14.2 % [facility]eAutoSS Hematocrit (Bld) [Volume fraction] 43.9 % Normal 37.7 - 49.0 % [facility]eAuto[facility] Hemoglobin (Bld) [Mass/Vol] 14.6 g/dL Normal 13.5 - 17.5 gm/dL [facility]eAuto[facility] MCH (RBC) [Entitic mass] 26.8 pg Low 27.0 - 34.0 pg [facility] MCHC (RBC) [Mass/Vol] 33.2 g/dL Normal 31.4 - 36.0 gm/dL [facility]eAuto[facility] MCV (RBC) [Entitic vol] 80.6 fL Normal 80.0 - 100.0 fL [facility]eAutoSS Platelet mean volume (Bld) [Entitic vol] 8.1 fL Normal 6.4 - 10.8 fL [facility] HemeAutoSS Platelets (Bld) [#/Vol] 205.0 E9/L Normal 150.0 - 500.0 E9/L [facility]eAuto[facility] RBC (Bld) [#/Vol] 5.4 E12/L Normal 4.3 - 5.9 E12/L [facility]eAutoSS WBC corrected for nucl RBC Auto (Bld) [#/Vol] 7.4 E9/L Normal 4.0 - 11.0 E9/L [facility]eAutoSS CHEMISTRYOrdered By: SYSTEM SYSTEM on 11-04-2021 Anion gap [Moles/Vol] 12 mmol/L Normal 6 - 16 mEq/L [facility] Calcium [Mass/Vol] 9.0 mg/dL Normal 8.9 - 11. 1 mg/dL [facility] Chloride [Moles/Vol] 104 mmol/L Normal 101 - 1 11 mmol/L [facility] CO2 [Moles/Vol] 25 mmol/L Normal 21 - 31 mmol/L [facility] Creatinine [Mass/Vol] 1.1 mg/dL Normal 0.5 - 1.3 mg/dL [facility] GFR/1.73 sq M.predicted among blacks MDRD (S/P/Bld) [Vol rate/Area] mL/min/1.73 m2 Normal >=59mL/min/ 1.73 m2 [facility] Chem S GFR/1.73 sq M.predicted among non-blacks MDRD (S/P/Bld) [Vol rate/Area] mL/min/1.73 m2 Normal >=59mL/min/ 1.73 m2 [facility] Chem S Glucose [Mass/Vol] 155 mg/dL Normal 55 - 199 mg/dL [facility] Potassium [Moles/Vol] 3.7 mmol/L Normal 3.5 - 5.3 mmol/L [facility] Sodium [Moles/Vol] 137 mmol/L Normal 135 - 145 mmol/L [facility] Urea nitrogen [Mass/Vol] 17 mg/dL Normal 5 - 21 mg/dL [facility] Urea nitrogen/Creatinine [Mass ratio] 16 mg/mg Normal 10 - 20 [facility] COAGULATIONOrdered By: Elvira Case on 11-04-2021 aPTT Coag (PPP) [Time] 34.4 s Normal 25.1 - 36.5 second(s) [facility] Auto Coag INR Coag (PPP) [Relative time] 1.2 {INR} Invalid Interpretation Code [facility] Auto Coag PT Coag (PPP) [Time] 13.7 s High 10.2 - 12.9 second(s) [facility] Auto Coag HEMATOLOGYOrdered By: SYSTEM SYSTEM on 11-04-2021 Basophils/100 WBC (Bld) 0.8 % Normal 0.0 - 2.0 % [facility] HemeAutoSS Basophils/Leukocytes Auto (Bld) [Pure # fraction] 0.1 E9/L Normal 0.0 - 0.2 E9/L [facility]eAuto[facility] Eosinophils/100 WBC (Bld) 5.3 % Normal 0.0 - 8.0 % [facility]eAutoSS Eosinophils/Leukocyte s Auto (Bld) [Pure # fraction] 0.3 E9/L Normal 0.0 - 0.5 E9/L [facility]eAuto[facility] Lymphocytes/100 WBC (Bld) 21.6 % Normal 14.0 - 50.0 % [facility]eAutoSS Lymphocytes/Leukocyte s Auto (Bld) [Pure # fraction] 1.4 E9/L Normal 1.0 - 4.0 E9/L [facility]eAuto[facility] Monocytes/100 WBC (Bld) 5.4 % Normal 4.0 - 14.0 % [facility]eAutoSS Monocytes/Leukocytes Auto (Bld) [Pure # fraction] 0.4 E9/L Normal 0.2 - 1.0 E9/L [facility]Auto[facility] Neutrophils/100 WBC (Bld) 66.9 % Normal 36.0 - 75.0 % [facility]eAuto[facility] Neutrophils/Leukocyte s Auto (Bld) [Pure # fraction] 4.4 E9/L Normal 2.0 - 7.5 E9/L [facility]eAuto[facility] HEMATOLOGYOrdered By: Mali Chang on 11-04-2021 Erythrocyte distribution width (RBC) [Ratio] 14.4 % High 10.9 - 14.2 % [facility]eAuto[facility] Hematocrit (Bld) [Volume fraction] 41.9 % Normal 37.7 - 49.0 % [facility]eAuto[facility] Hemoglobin (Bld) [Mass/Vol] 13.8 g/dL Normal 13.5 - 17.5 gm/dL [facility]eAuto[facility] MCH (RBC) [Entitic mass] 26.6 pg Low 27.0 - 34.0 pg [facility]eAuto[facility] MCHC (RBC) [Mass/Vol] 32.9 g/dL Normal 31.4 - 36.0 gm/dL [facility]eAuto[facility] MCV (RBC) [Entitic vol] 80.9 fL Normal 80.0 - 100.0 fL [facility]Auto[facility] Platelet mean volume (Bld) [Entitic vol] 8.6 fL Normal 6.4 - 10.8 fL [facility]eAuto[facility] Platelets (Bld) [#/Vol] 201.0 E9/L Normal 150.0 - 500.0 E9/L [facility]Auto[facility] RBC (Bld) [#/Vol] 5.2 E12/L Normal 4.3 - 5.9 E12/L [facility]eAuto[facility] WBC corrected for nucl RBC Auto (Bld) [#/Vol] 6.5 E9/L Normal 4.0 - 11.0 E9/L [facility]eAuto[facility] URINALYSISOrdered By: Elvira jimenez on 11-04-2021 Bilirubin Ql (U) Negative (11/04/21 1:55 PM) Normal Negative [facility] UA Auto SS Clarity (U) Clear (11/04/21 1:55 PM) Normal Clear [facility] UA Auto SS Color (U) Yellow (11/04/21 1:55 PM) Normal Yellow [facility] UA Auto SS Crystals LM Ql (Urine sed) Present (11/04/21 1:55 PM) Normal [facility] UA Auto SS Epithelial cells.squamous LM.HPF (Urine sed) [#/Area] 0-2 /HPF Normal 0-2/HPF [facility] Aut o SS Glucose Test strip (U) [Mass/Vol] Negative (11/04/21 1:55 PM) Normal Negative [facility] UA Auto SS Hemoglobin Ql (U) 3+ *ABN* (11/04/21 1:55 PM) Invalid Interpretation Code Negative [facility] UA Auto SS Ketones (U) [Mass/Vol] Negative (11/04/21 1:55 PM) Normal Negative [facility] UA Auto SS Valley.plasma/Lithiu m.RBC (Bld) [Mass ratio] >75 /HPF Invalid Interpretation Code 0-3/HPF [facility]A Auto SS Mucus Ql (Urine sed) 2+ (11/04/21 1:55 PM) Normal [facility] Auto SS Nitrite Ql (U) Negative (11/04/21 1:55 PM) Normal Negative [facility] UA Auto SS pH (U) 5.5 *NA* (11/04/21 1:55 PM) Invalid Interpretation Code 5.0 - 9.0 [facility] UA Auto SS Protein (U) [Mass/Vol] 1+ *ABN* (11/04/21 1:55 PM) Invalid Interpretation Code Negative [facility] UA Auto SS Specific gravity (U) [Rel density] >=1.030 *NA* (11/04/21 1:55 PM) Invalid Interpretation Code 1.005 - 1.030 [facility] UA Auto SS UA Spec Desc Clean Catch (11/04/21 1:55 PM) Normal [facility] UA Auto SS Urobilinogen Qn (U) 0.8043208 {Pratik'U}/dL Normal 0.0 - 1.0 EU/dL [facility] Auto SS WBC Auto Ql (U) Negative (11/04/21 1:55 PM) Normal Negative [facility] Auto SS WBC LM.HPF (Urine sed) [#/Area] 0-5 /HPF Normal 0-5/HPF [facility] UA Auto SS COAGULATIONOrdered By: Kayce Ennis on 09-15-2021 aPTT Coag (PPP) [Time] 35.8 s Normal 25.1 - 36.5 second(s) [facility] Auto Coag INR Coag (PPP) [Relative time] 1.2 {INR} Invalid Interpretation Code [facility] Auto Coag PT Coag (PPP) [Time] 14.7 s High 10.2 - 12.9 second(s) [facility] Auto Coag URINALYSISOrdered By: Mali Chang on 09-15-2021 Bilirubin Ql (U) Negative (09/15/21 5:00 PM) Normal Negative [facility] UA Auto SS Clarity (U) Clear (09/15/21 5:00 PM) Normal Clear [facility] UA Auto SS Color (U) Yellow (09/15/21 5:00 PM) Normal Yellow [facility] UA Auto SS Epithelial cells.squamous LM.HPF (Urine sed) [#/Area] 0-2 /HPF Normal 0-2/HPF [facility] UA Aut o SS Glucose Test strip (U) [Mass/Vol] Negative (09/15/21 5:00 PM) Normal Negative [facility] UA Auto SS Hemoglobin Ql (U) Negative (09/15/21 5:00 PM) Normal Negative [facility] UA Auto SS Ketones (U) [Mass/Vol] Negative (09/15/21 5:00 PM) Normal Negative [facility] UA Auto SS Valley.plasma/Lithiu m.RBC (Bld) [Mass ratio] 0-3 /HPF Normal 0-3/HPF [facility] UA Auto SS Nitrite Ql (U) Negative (09/15/21 5:00 PM) Normal Negative [facility] UA Auto SS pH (U) 6.0 *NA* (09/15/21 5:00 PM) Invalid Interpretation Code 5.0 - 9.0 [facility] UA Auto SS Protein (U) [Mass/Vol] Negative (09/15/21 5:00 PM) Normal Negative [facility] UA Auto SS Specific gravity (U) [Rel density] 1.025 *NA* (09/15/21 5:00 PM) Invalid Interpretation Code 1.005 - 1.030 [facility] Auto SS UA Spec Desc Clean Catch (09/15/21 5:00 PM) Normal [facility] UA Auto SS Urobilinogen Qn (U) 0.9827563 {Pratik'U}/dL Normal 0.0 - 1.0 EU/dL [facility] UA Auto SS WBC Auto Ql (U) Negative (09/15/21 5:00 PM) Normal Negative [facility] UA Auto SS WBC LM.HPF (Urine sed) [#/Area] 0-5 /HPF Normal 0-5/HPF [facility] UA Auto SS CBC AUTO DIFFon 09-13-2021 BASO # 0.1 103/ul Normal 0.0-0.1 [facility] Comment on above: Performed By: #### C BC #### [facility] [address] [place] [address] [address] Kaye Lopez Basophils/100 WBC (Bld) 0.5 % Normal 0.2-2.0 [facility] Comment on above: Performed By: #### C BC #### [facility] [address] [address] [address] Kaye Lopez EO # 0.2 103/ul Normal 0.0-0.7 [facility] Comment on above: Performed By: #### C BC #### [facility] [address] [place] [address] Dr. Kaye Lopez Eosinophils/100 WBC (Bld) 1.5 % Normal 0.9-7.0 [facility] Comment on above: Performed By: #### C BC #### [facility] [address] [place] [address] Dr. Kaye Lopez Erythrocyte distribution width (RBC) [Ratio] 13.7 % Normal 11.0-15.0 [facility] Comment on above: Performed By: #### C BC #### [facility] [address] [place] [address] Dr. Kaye Lopez Hematocrit (Bld) [Volume fraction] 49.0 % Normal 42.0-54.0 [facility] Comment on above: Performed By: #### C BC #### [facility] [address] [place] [address] Dr. Kaye Lopez Hemoglobin (Bld) [Mass/Vol] 16.0 g/dL Normal 14.0-18.0 [facility] Comment on above: Performed By: #### C BC #### [facility] [address] [place] [address] Dr. Kaye Lopez IG # 0.10 10e3/ul Critically high 0.00-0.03 [facility] Comment on above: Performed By: #### C BC #### [facility] [address] [place] [address] Dr. Kaye Lopez IG % 0.7 % Critically high 0.0-0.5 [facility] Comment on above: Performed By: #### C BC #### [facility] [address] [place] [address] Dr. Kaye Lopez LYMPH # 1.4 103/ul Normal 1.2-3.8 [facility] Comment on above: Performed By: #### C BC #### [facility] [address] [place] [address] Dr. Kaye Lopez Lymphocytes/100 WBC (Bld) 9.3 % Critically low 20.5-60.0 [facility] Comment on above: Performed By: #### C BC #### [facility] [address] [place] [address] Dr. Kaye Lopez MANUAL DIFF REQ NO Normal [facility] Comment on above: Performed By: #### C BC #### [facility] [address] [place] [address] Dr. Kaye Lopez MCH (RBC) [Entitic mass] 27.0 pg Normal 25.9-34.0 [facility] Comment on above: Performed By: #### C BC #### [facility] [address] [place] [address] Dr. Kaye Lopez MCHC (RBC) [Mass/Vol] 32.7 g/dL Normal 29.9-35.2 [facility] Comment on above: Performed By: #### C BC #### [facility] [address] [place] [address] Dr. Kaye Lopez MCV (RBC) [Entitic vol] 82.6 fL Normal 80.0-94.0 [facility] Comment on above: Performed By: #### C BC #### [facility] [address] [place] [address] Dr. Kaye Lopez MONO # 0.8 103/ul Normal 0.3-0.8 [facility] Comment on above: Performed By: #### C BC #### [facility] [address] [place] [address] Dr. Kaye Lopez Monocytes/100 WBC (Bld) 5.3 % Normal 1.7-12.0 [facility] Comment on above: Performed By: #### C BC #### [facility] [address] [place] [address] Dr. Kaye Lopez NEUT # 12.1 103/ul Critically high 1.4-6.5 [facility] Comment on above: Performed By: #### C BC #### [facility] [address] [place], [place] [id number] Dr. Kaye Lopez Neutrophils/100 WBC (Bld) 82.7 % Critically high 43.0-75.0 [facility] Comment on above: Performed By: #### C BC #### [facility] [address] [place] [address] Dr. Kaye Lopez Platelet mean volume (Bld) [Entitic vol] 9.7 fL Normal 9.5-13.5 [facility] Comment on above: Performed By: #### C BC #### [facility] [address] [place] [address] Dr. Kaye Lopez PLT 246 103/ul Normal 150-450 [facility] Comment on above: Performed By: #### C BC #### [facility] [address] [place], [place] [id number] Dr. Kaye Lopez RBC 5.93 106/ul Normal 4.70-6.10 [facility] Comment on above: Performed By: #### C BC #### [facility] [address] [place], [place] [address] Dr. Kaye Lopez WBC 14.7 103/ul Critically high 4.0-11.0 [facility] Comment on above: Performed By: #### C BC #### [facility] [address] [place], [place] [id number] Dr. Kaye Lopez CT ABD/PELVIS WO CONon 09-13 CT ABD/PELVIS WO CON EXAM: CT ABD/PELVIS WO CON CLINICAL INDICATION: CALCULUS OF KIDNEY COMPARISON: No comparison studies are available at the time of this dictation. TECHNIQUE: Axial CT images were obtained through the abdomen and pelvis. No intravenous contrast was administered. The absence of intravenous contrast does limit evaluation particularly of the parenchymal organs and for adenopathy. Coronal and sagittal reformats were obtained. Dose reduction techniques were achieved by using automated exposure control and/or adjustment of mA and/or kV according to patient size and/or use of iterative reconstruction technique. FINDINGS: Lungs: Bibasilar dependent atelectasis visualized. Liver: Unremarkable with no focal lesion Gallbladder and biliary system: There is a hyperdensity noted along the superior aspect of the gallbladder, findings may represent a small stone versus polyp. Additional hyperdensity noted along the dependent portion of the gallbladder.. Biliary ducts no pathologic dilation. Spleen: Spleen is not enlarged Pancreas: Unremarkable Adrenal Glands: Adrenals no masses. Kidneys and ureters: There is mild to moderate left-sided hydroureteronephrosis visualized with an obstructing 7.5 mm calculus visualized within the proximal one third ureter just after the left UPJ. There is a 6.4 mm nonobstructing calculus visualized within the midpole of the left kidney. Punctate nonobstructing calculus visualized within the upper pole of the right kidney.. Vascular: No evidence of abdominal aortic aneurysm. Vascular calcifications are seen in keeping with atherosclerosis. Lymph nodes: No pathologically enlarged nodes are seen. Gastrointestinal Tract: Stomach: Unremarkable Bowel: No pathologic dilation or mucosal thickening. Mild colonic diverticulosis without evidence for diverticulitis. Appendix: No findings to suggest acute appendicitis. Peritoneal Cavity: No free air. No significant fluid collections. Soft tissues abdominal wall: No abdominal wall hernias containing bowel. Small fat-containing anterior abdominal hernia. Reproductive: Prostate measures within normal limits Bladder: Bladder without apparent masses. The bladder is underdistended which does limit evaluation of the wall. Bony structures: No acute osseous abnormality visualized. Moderate disc bulge visualized at L4-L5 with mild to moderate central canal narrowing and narrowing of the bilateral lateral recesses, right greater than left with severe lateral neuroforaminal narrowing. Additional disc bulge visualized at the L3-L4 level with ligamentum flavum thickening and moderate central canal narrowing with narrowing of the bilateral lateral recesses with severe bilateral neuroforaminal narrowing. IMPRESSION: 1. Mild to moderate left-sided hydroureteronephrosis with a nonobstructing 7.5 mm calculus visualized within the proximal one third ureter just after the left UVJ. 2. 6.4 mm nonobstructing calculus visualized within the midpole of the left kidney. Punctate nonobstructing calculi visualized within the upper pole of the right kidney. 3. Mild colonic diverticulosis without evidence for diverticulitis. 4. Stones versus polyps within the gallbladder. 5. There are moderate disc bulges visualized at the L3-L4 and L4-L5 levels with mild to moderate central canal narrowing with associated narrowing of the bilateral lateral recesses and severe neuroforaminal narrowing, short-term follow-up with MRI lumbar spine may be done to further evaluate. Electronically authenticated by: KELVIN CASIANO Date: 2021-09-13 02:29 Normal [facility] CULTURE URINEon 09-13-2021 CULTURE URINE Culture Observations : No growth Normal [facility] Comment on above: Performed By: #### U RCX #### [facility] [address] [place] [address] Dr. Kaye Lopez ER URINE PROFILEon 2 Bilirubin Ql (U) Negative Normal NEGATIVE [facility] Comment on above: Performed By: #### U MICRO, ERUR #### [facility] [address] [place] [address] Dr. Kaye Lopez Clarity (U) CLEAR Normal CLEAR [facility] Comment on above: Performed By: #### U MICRO, ERUR #### [facility] [address] [place] [address] Dr. Kaye Lopez Color (U) YELLOW Normal YELLOW [facility] Comment on above: Performed By: #### U MICRO, ERUR #### [facility] [address] [place] [address] Dr. Kaye Lopez ERUAHD A micrscopic examina tion will be performed if indicated. Normal [facility] Comment on above: Performed By: #### U MICRO, ERUR #### [facility] [address] [address] [address] Kaye Lopez Glucose Ql (U) Negative Normal NEGATIVE [facility] Comment on above: Performed By: #### U MICRO, ERUR #### [facility] [address] [place] [address] Dr. Kaye Lopez Hemoglobin Ql (U) LARGE Abnormal NEGATIVE [facility] Comment on above: Performed By: #### U MICRO, ERUR #### [facility] [address] [place] [address] Dr. Kaye Lopez Ketones Ql (U) Negative Normal NEGATIVE [facility] Comment on above: Performed By: #### U MICRO, ERUR #### [facility] [address] [place] [address] Dr. Kaye Lopez LEUKOCYTES Negative Normal NEGATIVE [facility] Comment on above: Performed By: #### U MICRO, ERUR #### [facility] [address] [address] [address] Kaye Lopez Nitrite Ql (U) Negative Normal NEGATIVE [facility] Comment on above: Performed By: #### U MICRO, ERUR #### [facility] [address] [place] [address] Dr. Kaye Lopez pH (U) 6.0 [pH] Normal 5-9 [facility] Comment on above: Performed By: #### U MICRO, ERUR #### [facility] [address] [place] [address] Dr. Kaye Lopez SPEC GRAVITY 1.025 Normal 1.005-<=1.0 25 [facility] Comment on above: Performed By: #### U MICRO, ERUR #### [facility] [address] [place] [address] Dr. Kaye Lopez UA PROTEIN Negative Normal NEGATIVE/ TRACE [facility] Comment on above: Performed By: #### U MICRO, ERUR #### [facility] [address] [place] [address] Dr. Kaye Lopez UR MICRO IND INDICATED Normal [facility] Comment on above: Performed By: #### U MICRO, ERUR #### [facility] [address] [place] [address] Dr. Kaye Lopez Urobilinogen Qn (U) 0.2 {Pratik'U}/dL Normal 0.2 - 1. 0 [facility] Comment on above: Performed By: #### U MICRO, ERUR #### [facility] [address] [place] [address] Dr. Kaye Lopez PROF 14(COMP METB)on 06-13-2 022 Albumin [Mass/Vol] 3.9 g/dL Normal 3.4-5.0 [facility] Comment on above: Performed By: #### U RCX #### [facility] [address] [place] [address] Dr. Kaye Lopez Albumin/Globulin [Mass ratio] 0.9 {ratio} Normal [facility] Comment on above: Performed By: #### U RCX #### [facility] [address] [address] [address] Kaye Lopez ALP [Catalytic activity/Vol] 96 U/L Normal 46-116 [facility] Comment on above: Performed By: #### U RCX #### [facility] [address] [place] [address] Dr. Kaye Lopez ALT [Catalytic activity/Vol] 50 U/L Normal 16-63 [facility] Comment on above: Performed By: #### U RCX #### [facility] [address] [place] [address] Dr. Kaye Lopez Anion gap [Moles/Vol] 12.8 mmol/L Normal [facility] Comment on above: Performed By: #### U RCX #### [facility] [address] [place] [address] Dr. Kaye Lopez AST [Catalytic activity/Vol] 20 U/L Normal 15-37 [facility] Comment on above: Performed By: #### U RCX #### [facility] [address] [place] [address] Dr. Kaye Lopez Bilirubin [Mass/Vol] 0.5 mg/dL Normal 0.2-1.0 [facility] Comment on above: Performed By: #### U RCX #### [facility] [address] [place] [address] Dr. Kaye Lopez Calcium [Mass/Vol] 9.0 mg/dL Normal 8.5-10.1 [facility] Comment on above: Performed By: #### U RCX #### [facility] [address] [place] [address] Dr. Kaye Lopez Chloride [Moles/Vol] 101 mmol/L Normal 98-107 [facility] Comment on above: Performed By: #### U RCX #### [facility] [address] [address] [address] Kaye Lopez CO2 [Moles/Vol] 26.5 mmol/L Normal 21.0-32.0 [facility] Comment on above: Performed By: #### U RCX #### [facility] [address] [address] [address] Kaye Lopez Creatinine [Mass/Vol] 1.03 mg/dL Normal 0.70-1.30 [facility] Comment on above: Performed By: #### U RCX #### [facility] [address] [address] [address] Kaye Lopez EGFR-AF GERMAN >60 Normal >=60 [facility] Comment on above: Performed By: #### U RCX #### [facility] [address] [address] [address] Kaye Lopez EGFR-NON AF GERMAN >60 Normal >=60 [facility] Comment on above: Performed By: #### U RCX #### [facility] [address] [address] [address] Kaye Lopez Globulin (S) [Mass/Vol] 4.5 g/dL Normal [facility] Comment on above: Performed By: #### U RCX #### [facility] [address] [address] [address] Kaye Lopez Glucose [Mass/Vol] 132 mg/dL Critically high 74-106 [facility] Comment on above: Performed By: #### U RCX #### [facility] [address] [address] [address] Kaye Lopez Potassium [Moles/Vol] 4.3 mmol/L Normal 3.5-5.1 [facility] Comment on above: Performed By: #### U RCX #### [facility] [address] [address] [address] Kaye Lopez Protein [Mass/Vol] 8.4 g/dL Critically high 6.4-8.2 [facility] Comment on above: Performed By: #### U RCX #### [facility] [address] [address] [address] Kaye Lopez Sodium [Moles/Vol] 136 mmol/L Normal 136-145 [facility] Comment on above: Performed By: #### U RCX #### [facility] [address] [address] [address] Kaye Lopez Urea nitrogen [Mass/Vol] 17.0 mg/dL Normal 7.0-18.0 [facility] Comment on above: Performed By: #### U RCX #### [facility] [address] [address] [address] Kaye Lopez Urea nitrogen/Creatinine [Mass ratio] 16.5 mg/mg Normal [facility] Comment on above: Performed By: #### U RCX #### [facility] [address] [place] [address] Dr. Kaye Lopez URINE MICROSCOPIC ONLYon BACTERIA TRACE Abnormal NONE SEEN [facility] Comment on above: Performed By: #### U MICRO, ERUR #### [facility] [address] [place] [address] Dr. Kaye Lopez Bacteria identified Cx Nom (U) INDICATED Normal [facility] Comment on above: Performed By: #### U MICRO, ERUR #### [facility] [address] [place] [address] Dr. Kaye Lopez CAST NONE SEEN Normal NONE SEEN [facility] Comment on above: Performed By: #### U MICRO, ERUR #### [facility] [address] [place] [address] Dr. Kaye Lopez Crystals LM Nom (Urine sed) NONE SEEN Normal NONE SEEN [facility] Comment on above: Performed By: #### U MICRO, ERUR #### [facility] [address] [place] [address] Dr. Kaye Lopez Epithelial cells LM Ql (Urine sed) FEW Abnormal NONE SEEN /RARE [facility] Comment on above: Performed By: #### U MICRO, ERUR #### [facility] [address] [place] [address] Dr. Kaye Lopez MUCOUS SMALL Abnormal NONE SEEN [facility] Comment on above: Performed By: #### U MICRO, ERUR #### [facility] [address] [place], [place] [address] Dr. Kaye Lopez RBC 10-20 Abnormal 0-2 [facility] Comment on above: Performed By: #### U MICRO, ERUR #### [facility] [id number] Kaye Lopez WBC 0-2 Abnormal NONE SEEN [facility] Comment on above: Performed By: #### U MICRO, ERUR #### [facility] [address] [place], [place] [address] Dr. Kaye Lopez Vital Signs Date Time Vital Sign Value Performing Clinician Facility 03-03-2022 15:45-0500 Blood Pressure Location [facility] 03-03-2022 15:45-0500 Diastolic blood pressure 105 mm[Hg] [facility] 03-03-2022 15:45-0500 Systolic blood pressure 168 mm[Hg] [facility] 03-03-2022 15:40-0500 Blood Pressure Location [facility] 03-03-2022 15:40-0500 Body temperature 98.06 [degF] [facility] 03-03-2022 15:40-0500 Diastolic blood pressure 81 mm[Hg] [facility] 03-03-2022 15:40-0500 Heart rate 82 /min [facility] 03-03-2022 15:40-0500 Mean blood pressure 112 mm[Hg] [facility] 03-03-2022 15:40-0500 Respiratory rate 18 /min Marcial S[facility]OVAL [facility] 03-03-2022 15:40-0500 SaO2% (BldA) [Mass fraction] 97 % Mar[facility] 03-03-2022 15:40-0500 Systolic blood pressure 175 mm[Hg] Marcial S[facility]OVAL [facility] 11-04-2021 15:34-0400 Body temperature 97.88 [degF] Armin Gibbs Jr. [facility] 11-04-2021 15:34-0400 Diastolic blood pressure 84 mm[Hg] Armin Gibbs Jr[facility] 11-04-2021 15:34-0400 Heart rate 76 /min Armin Gibbs Jr[facility] 11-04-2021 15:34-0400 Mean blood pressure 107 mm[Hg] Armin Gibbs Jr. [facility] 11-04-2021 15:34-0400 SaO2% (BldA) [Mass fraction] 94 % Armin Gibbs Jr[facility] 11-04-2021 15:34-0400 Systolic blood pressure 152 mm[Hg] Armin Gibbs Jr. [facility] 11-04-2021 15:34-0400 Blood Pressure Location Armin Gibbs Jr[facility] 11-04-2021 15:34-0400 Respiratory rate 18 /min Armin Gibbs Jr[facility] 11-04-2021 15:32-0400 Diastolic blood pressure 91 mm[Hg] Armin Gibbs Jr[facility] 11-04-2021 15:32-0400 Heart rate 75 /min Armin Gibbs Jr[facility] 11-04-2021 15:32-0400 Mean blood pressure 108 mm[Hg] Armin Gibbs Jr[facility] 11-04-2021 15:32-0400 Systolic blood pressure 143 mm[Hg] Armin Gibbs Jr[facility] 11-04-2021 15:32-0400 Blood Pressure Location Armin Gibbs Jr[facility] 09-16-2021 11:09-0400 Blood Pressure Location Armin Gibbs Jr[facility] 09-16-2021 11:09-0400 Body temperature 97.88 [degF] Armin Gibbs Jr[facility] 09-16-2021 11:09-0400 Diastolic blood pressure 102 mm[Hg] Armin Gibbs Jr[facility] 09-16-2021 11:09-0400 Heart rate 89 /min Armin Gibbs Jr[facility] 09-16-2021 11:09-0400 Mean blood pressure 123 mm[Hg] Armin Gibbs Jr[facility] 09-16-2021 11:09-0400 Respiratory rate 16 /min Armin Gibbs Jr[facility] 09-16-2021 11:09-0400 SaO2% (BldA) [Mass fraction] 95 % Armin Gibbs Jr[facility] 09-16-2021 11:09-0400 Systolic blood pressure 164 mm[Hg] Armin Gibbs Jr[facility] 09-16-2021 10:04-0400 Blood Pressure Location Armin Gibbs Jr[facility] 09-16-2021 10:04-0400 Body temperature 98.06 [degF] Armin Gibbs Jr[facility] 09-16-2021 10:04-0400 Diastolic blood pressure 78 mm[Hg] Armin Gibbs Jr[facility] 09-16-2021 10:04-0400 Heart rate 80 /min Armin Gibbs Jr[facility] 09-16-2021 10:04-0400 Mean blood pressure 95 mm[Hg] Armin Gibbs Jr[facility] 09-16-2021 10:04-0400 Respiratory rate 20 /min Armin Gibbs Jr[facility] 09-16-2021 10:04-0400 SaO2% (BldA) [Mass fraction] 96 % Armin Gibbs Jr[facility] 09-16-2021 10:04-0400 Systolic blood pressure 129 mm[Hg] Armin Gibbs Jr[facility] 09-16-2021 10:04-0400 Respiratory rate 13 /min Armin Gibbs Jr[facility] 09-16-2021 09:53-0400 Blood Pressure Location Armin Gibbs Jr[facility] 09-16-2021 09:53-0400 Body temperature 97.52 [degF] Armin [facility] Jr[facility] 09-16-2021 09:53-0400 Diastolic blood pressure 96 mm[Hg] Armin [facility] Jr[facility] 09-16-2021 09:53-0400 Heart rate 85 /min Armin Gibbs Jr[facility] 09-16-2021 09:53-0400 Respiratory rate 19 /min Armin Gibbs Jr[facility] 09-16-2021 09:53-0400 SaO2% (BldA) [Mass fraction] 95 % Armin Gibbs Jr[facility] 09-16-2021 09:53-0400 Systolic blood pressure 170 mm[Hg] Armin Gibbs Jr[facility] 09-16-2021 09:43-0400 Respiratory rate 11 /min Armin Gibbs Jr[facility] 09-16-2021 09:28-0400 Body temperature 96.8 [degF] Armin Gibbs Jr[facility] 09-16-2021 09:25-0400 Respiratory rate 17 /min Armin [facility] Jr[facility] 09-16-2021 06:18-0400 Mean blood pressure 117 mm[Hg] Armin [facility] Jr[facility] 09-16-2021 06:16-0400 Heart rate 80 /min Armin [facility] Jr[facility] 09-15-2021 16:26-0400 Diastolic blood pressure 85 mm[Hg] Arm[facility] Jr[facility] 09-15-2021 16:26-0400 Heart rate 83 /min Armin [facility] Jr[facility] 09-15-2021 16:26-0400 Mean blood pressure 105 mm[Hg] [facility] Jr[facility] 09-15-2021 16:26-0400 SaO2% (BldA) [Mass fraction] 94 % [facility] Jr[facility] 09-15-2021 16:26-0400 Systolic blood pressure 145 mm[Hg] Arm[facility] Jr[facility] 09-15-2021 16:26-0400 Blood Pressure Location Armin Gibbs Jr[facility] 09-15-2021 16:24-0400 Diastolic blood pressure 88 mm[Hg] Armin Gibbs Jr[facility] 09-15-2021 16:24-0400 Heart rate 84 /min Armin Gibbs Jr[facility] 09-15-2021 16:24-0400 Mean blood pressure 107 mm[Hg] Armin Gibbs Jr[facility] 09-15-2021 16:24-0400 SaO2% (BldA) [Mass fraction] 94 % Armin [facility] Jr[facility] 09-15-2021 16:24-0400 Systolic blood pressure 146 mm[Hg] Armin Gibbs Jr[facility] 09-15-2021 16:24-0400 Blood Pressure Location Armin Gibbs Jr[facility] 09-15-2021 16:24-0400 Body temperature 97.7 [degF] [facility] Jr[facility] 09-15-2021 16:24-0400 Respiratory rate 20 /min Armin [facility] Jr[facility] 09-14-2021 08:20-0400 Blood Pressure Location Armin Gibbs Jr[facility] 09-14-2021 08:20-0400 Diastolic blood pressure 100 mm[Hg] Armin Gibbs Jr[facility] 09-14-2021 08:20-0400 Heart rate 97 /min Armin Gibbs Jr. [facility] 09-14-2021 08:20-0400 Respiratory rate 16 /min Armin Gibbs Jr[facility] 09-14-2021 08:20-0400 Systolic blood pressure 188 mm[Hg] Armin Gibbs Jr[facility] Encounters Encounter Date Encounter Type Care Provider Facility Start: 04-19-2024 End: 04-19-2024 Refill Toshia Aichholz COLUMNIST/COMMENTATOR Work Phone: [facility] Comment on above: Essential hypertensi on (CMS/HCC) Start: 04-18-2024 End: 04-18-2024 Refill Toshia Aichholz COLUMNIST/COMMENTATOR Work Phone: [facility] Comment on above: Essential hypertensi on (CMS/HCC) Start: 01-20-2024 End: 01-21-2024 Refill Toshia Aichholz COLUMNIST/COMMENTATOR Work Phone: [facility] Comment on above: Essential hypertensi on (CMS/HCC) Start: 07-25-2023 End: 07-25-2023 ambulatory TOSHIA AICHHOLZ Not Available Start: 05-12-2023 Refill Toshia Aichholz COLUMNIST/COMMENTATOR Work Phone: [facility] Comment on above: Essential (primary) hypertension (CMS/HCC); Essential hypertension (CMS/HCC) Start: 02-21-2023 End: 02-22-2023 ambulatory Marcial SANDOVAL Facility:[facility] Start: 02-21-2023 End: 02-21-2023 Patient encounter procedure Marcial SANDOVAL [facility] Start: 08-15-2022 End: 08-16-2022 ambulatory Marcial SANDOVAL Facility: [facility] Start: 08-15-2022 End: 08-15-2022 Patient encounter procedure Marcial SANDOVAL [facility] Start: 07-07-2022 End: 07-08-2022 ambulatory Marcial SANDOVAL Facility:[facility] Start: 07-07-2022 End: 07-07-2022 Patient encounter procedure Marcial S[facility]OVAL [facility] Start: 06-27-2022 End: 06-28-2022 ambulatory Marcial SANDOVAL Facility:[facility] Start: 06-09-2022 End: 06-10-2022 ambulatory Marcial SANDOVAL Facility:[id number] Start: 06-02-2022 End: 06-03-[address] MARCIAL SANDOVAL Facility: Start: 04-29-2022 End: 04-30-[address] MARCIAL SANDOVAL Facility: Start: 03-03-2022 End: 03-04-2022 ambulatory Marcial SANDOVAL Facility:[facility] Start: 03-03-2022 End: 03-03-2022 Patient encounter procedure Marcial SANDOVAL [facility] Start: 02-08-2022 End: 03-11-2022 Pre-admission assessment Marcial SANDOVAL [facility] Start: 02-08-2022 End: 02-08-2022 Patient encounter procedure Marcial SANDOVAL [facility] Start: 12-16-2021 ambulatory Facility:[id number] Start: 12-16-2021 End: 12-16-2021 Patient encounter procedure Marcial SANDOVAL [facility] Start: 11-04-2021 End: 11-04-2021 Patient encounter procedure Armin Gibbs Jr. [facility] Start: 10-26-2021 End: 11-26-2021 Pre-admission assessment Armin Gibbs Jr. [facility] Start: 09-16-2021 End: 09-16-2021 Admission to same day surgery center Armin Gibbs Jr. [facility] Start: 09-15-2021 ambulatory Facility:[id number] Start: 09-15-2021 End: 09-15-2021 Patient encounter procedure Armin Gibbs Jr. [facility] Start: 09-14-2021 End: 09-14-2021 Patient encounter procedure Armin Gibbs Jr. [facility] Start: 09-12-2021 End: 09-13-2021 ambulatory [facility] Facility: Procedures Date Procedure Procedure Detail Performing Clinician Start: 06-09-2022 Cystoscopic insertio n of ureteric stent Marcial SANDOVAL Start: 12-23-2021 Extracorporeal shock wave lithotripsy of calculus of kidney Marcial SANDOVAL Start: 09-16-2021 Cystoscopy Armin eagle Jr. Closed fracture head of femur (disorder) Armin Gibbs Jr. Cyst (morphologic abnormality) Armin Gibbs Jr. Reduction mammoplasty Armin Gibbs Jr. Plan of Treatment Date Care Activity Detail Author Start: 01-24-2024 End: 01-24-2024 Patient encounter procedure 01/24/2024 3:40 PM EDT Office Visit [facility] [address] [place] [address] Toshia Hyman, COLUMNIST/COMMENTATOR [address] [place] [address] [facility] Start: 12-03-2023 Influenza vaccination Influenza Vacc ine (#1) [facility] Start: 12-02-2022 Influenza vaccination Influenza Vacc ine (#1) [facility] Start: 1980 Screening for malign ant neoplasm of colon [facility] Immunizations Immunization Date Immunization Notes Care Provider Fa cility 05-31-2021 SARS-CoV-2 mRNA (tozinameran 5y-11y) vaccine Armin Gibbs Jr. [facility] 12-01-2020 SARS-CoV-2 mRNA (tozinameran 5y-11y) vaccine Armin Gibbs Jr. [facility] 11-03-2020 SARS-CoV-2 mRNA (tozinameran 5y-11y) vaccine Armin Gibbs Jr. [facility] Payers Date Payer Category Payer [facility] Care O (unspecified) [id number] 1978 Unknown [id number] 1978 Unknown [id number] 1978 Unknown [id number] 2.16.84 [id number] 1978 Unknown [id number] 2.16.84 [id number] 1978 Unknown [id number] 2.16.84 [id number] 1978 Unknown [id number] 1978 Unknown [id number] 1978 Unknown [id number] 1978 Unknown [id number] 1978 Unknown [id number] 1978 Unknown [id number] 1978 Unknown [id number] 1959 Private Health Insurance [id number] Self-pay Social History Date Type Detail Facility Tobacco smoking status No Smokin g Status Entered [facility] Start: 07-25-2023 Sex Assigned At Male [facility] Start: 02-08-2022 End: 07-25-2023 Tobacco smoking status Never smoked tobacco (finding) [facility] Tobacco smoking status Never [facility] Tobacco smoking stat NHIS Tobacco smoking consumption unknown [facility] Start: 1980 Sex Assigned At Not on file [facility] Start: 07-25-2023 Tobacco use and exposure Smokeless tobacco non-user [facility] Start: 07-25-2023 Alcoholic beverage intake Current drinker of alcohol (finding) [facility] Start: 07-25-2023 Alcoholic beverage intake [facility] Start: 07-25-2023 Alcohol Comment caffine: enger y drinks 1 daily [facility] Medical Equipment Procedure Code Equipment Code Equipment Origin al Text Equipment Identifier Dates CYSTOSCOPY RETROGRADE STENT INSERTION Armin Gibbs Jr., MD 09/16/21 Unknown Ureter L [employer] Start: 09-16-2021 CYSTOSCOPY RETROGRADE STENT INSERTION Armin Gibbs Jr., MD 09/16/21 Unknown Ureter L FDA Start: 09-16-2021 CYSTOSCOPY RETROGRADE STENT INSERTION Armin Gibbs Jr., MD 09/16/21 Unknown Ureter L FDA Start: 09-16-2021 CYSTOSCOPY RETROGRADE STENT INSERTION Armin Gibbs Jr., MD 09/16/21 Unknown Ureter L FDA Start: 09-16-2021 CYSTOSCOPY RETROGRADE STENT INSERTION Armin Gibbs Jr., MD 09/16/21 Unknown Ureter L FDA Start: 09-16-2021 CYSTOSCOPY RETROGRADE STENT INSERTION Armin Gibbs Jr., MD 09/16/21 Unknown Ureter L FDA Start: 09-16-2021 CYSTOSCOPY RETROGRADE STENT INSERTION Armin Gibbs Jr., MD 09/16/21 Unknown Ureter L FDA Start: 09-16-2021 CYSTOSCOPY RETROGRADE STENT INSERTION Armin Gibbs Jr., MD 09/16/21 Unknown Ureter L FDA Start: 09-16-2021 CYSTOSCOPY RETROGRADE STENT INSERTION Armin Gibbs Jr., MD 09/16/21 Unknown Ureter L FDA Start: 09-16-2021 CYSTOSCOPY RETROGRADE STENT INSERTION Armin Gibbs Jr., MD 09/16/21 Unknown Ureter L FDA Start: 09-16-2021 Functional Status Date Assessment Result Facility 08-15-2022 Functional Status N/A [facility] 03-03-2022 Functional Status No [facility] [place] 02-08-2022 Functional Status N/A [facility] 11-04-2021 Functional Status No [facility] [place] 09-15-2021 Functional Status No [facility] [place] 09-14-2021 Functional Status N/A [facility] Clinical Notes 09-14-2021 to 04-18-2024 Telephone Encounter - Toshia Hyman NP - 04/18/2024 6:01 PM ESTTelephone Encounter - Toshia Hyman NP - 04/18/2024 6:01 PM ESTRadiologyRadiology Note Date & Type Note Facility 04-18-2024 Telephone encount er Note Refill request for blood pressure meds, he missed his 01/24appt, and has not been seen since 07/25, needs an appt scheduled [place] [facility] 04-18-2024 Miscellaneous Notes Formattin g of this note might be different from the original. Refill request for blood pressure meds, he missed his 01/24appt, and has not been seen since 07/25, needs an appt scheduled [place] documented in this encounter [facility] 08-15-2022 Evaluation + Plan note Future Scheduled TestsXR Abdomen 1 View 08/15/22 [facility] 08-15-2022 Hospital Discharg e instructions Patient Education 08/15/2022 07:26:59 Kidney Stones, Thqf-rl-Bfbl Kidney Stones Kidney stones are rock-like masses that form inside of the kidneys. Kidneys are organs that make pee (urine). A kidney stone may move into other parts of the urinary tract, including: The tubes that connect the kidneys to the bladder (ureters). The bladder. The tube that carries urine out of the body (urethra). Kidney stones can cause very bad pain and can block the flow of pee. The stone usually leaves your body (passes) through your pee. You may need to have a doctor take out the stone. What are the causes? Kidney stones may be caused by: A condition in which certain glands make too much parathyroid hormone (primary hyperparathyroidism). A buildup of a type of crystals in the bladder made of a chemical called uric acid. The body makes uric acid when you eat certain foods. Narrowing (stricture) of one or both of the ureters. A kidney blockage that you were born with. Past surgery on the kidney or the ureters, such as gastric bypass surgery. What increases the risk? You are more likely to develop this condition if: You have had a kidney stone in the past. You have a family history of kidney stones. You do not drink enough water. You eat a diet that is high in protein, salt (sodium), or sugar. You are overweight or very overweight (obese). What are the signs or symptoms? Symptoms of a kidney stone may include: Pain in the side of the belly, right below the ribs (flank pain). Pain usually spreads (radiates) to the groin. Needing to pee often or right away (urgently). Pain when going pee (urinating). Blood in your pee (hematuria). Feeling like you may vomit (nauseous). Vomiting. Fever and chills. How is this treated? Treatment depends on the size, location, and makeup of the kidney stones. The stones will often pass out of the body through peeing. You may need to: Drink more fluid to help pass the stone. In some cases, you may be given fluids through an IV tube put into one of your veins at the hospital. Take medicine for pain. Make changes in your diet to help keep kidney stones from coming back. Sometimes, medical procedures are needed to remove a kidney stone. This may involve: A procedure to break up kidney stones using a beam of light (laser) or shock waves. Surgery to remove the kidney stones. Follow these instructions at home: Medicines Take zgtj-opd-xklbdds and prescription medicines only as told by your doctor. Ask your doctor if the medicine prescribed to you requires you to avoid driving or using heavy machinery. Eating and drinking Drink enough fluid to keep your pee pale yellow. You may be told to drink at least 8 10 glasses of water each day. This will help you pass the stone. If told by your doctor, change your diet. This may include: ?Limiting how much salt you eat. ?Eating more fruits and vegetables. ?Limiting how much meat, poultry, fish, and eggs you eat. Follow instructions from your doctor about eating or drinking restrictions. General instructions Collect pee samples as told by your doctor. You may need to collect a pee sample: ?24 hours after a stone comes out. ?8 12 weeks after a stone comes out, and every 6 12 months after that. Strain your pee every time you pee (urinate), for as long as told. Use the strainer that your doctor recommends. Do not throw out the stone. Keep it so that it can be tested by your doctor. Keep all follow-up visits as told by your doctor. This is important. You may need follow-up tests. How is this prevented? To prevent another kidney stone: Drink enough fluid to keep your pee pale yellow. This is the best way to prevent kidney stones. Eat healthy foods. Avoid certain foods as told by your doctor. You may be told to eat less protein. Stay at a healthy weight. Where to find more information National Kidney Foundation (NKF): www.kidney.org Urology Care Foundation (UCF): www.urologyhealth.org Contact a doctor if: You have pain that gets worse or does not get better with medicine. Get help right away if: You have a fever or chills. You get very bad pain. You get new pain in your belly (abdomen). You pass out (faint). You cannot pee. Summary Kidney stones are rock-like masses that form inside of the kidneys. Kidney stones can cause very bad pain and can block the flow of pee. The stones will often pass out of the body through peeing. Drink enough fluid to keep your pee pale yellow. This information is not intended to replace advice given to you by your health care provider. Make sure you discuss any questions you have with your health care provider. Document Revised: 11/22/2021 Document Reviewed: 11/22/2021 [employer] Patient Education 2022 [employer] Follow Up Care 08/05/2022 08:06:56 With:JAIME DAO, Marcial Bundy, URL Address: [address] [place], [place] [id number]- When:02/15/2023 Comments:KUB [facility] 02-08-2022 Hospital Discharg e instructions Patient Education 02/08/2022 14:12:33 Kidney Stones, Nopb-zp-Mhpw Kidney Stones Kidney stones are rock-like masses that form inside of the kidneys. Kidneys are organs that make pee (urine). A kidney stone may move into other parts of the urinary tract, including: The tubes that connect the kidneys to the bladder (ureters). The bladder. The tube that carries urine out of the body (urethra). Kidney stones can cause very bad pain and can block the flow of pee. The stone usually leaves your body (passes) through your pee. You may need to have a doctor take out the stone. What are the causes? Kidney stones may be caused by: A condition in which certain glands make too much parathyroid hormone (primary hyperparathyroidism). A buildup of a type of crystals in the bladder made of a chemical called uric acid. The body makes uric acid when you eat certain foods. Narrowing (stricture) of one or both of the ureters. A kidney blockage that you were born with. Past surgery on the kidney or the ureters, such as gastric bypass surgery. What increases the risk? You are more likely to develop this condition if: You have had a kidney stone in the past. You have a family history of kidney stones. You do not drink enough water. You eat a diet that is high in protein, salt (sodium), or sugar. You are overweight or very overweight (obese). What are the signs or symptoms? Symptoms of a kidney stone may include: Pain in the side of the belly, right below the ribs (flank pain). Pain usually spreads (radiates) to the groin. Needing to pee often or right away (urgently). Pain when going pee (urinating). Blood in your pee (hematuria). Feeling like you may vomit (nauseous). Vomiting. Fever and chills. How is this treated? Treatment depends on the size, location, and makeup of the kidney stones. The stones will often pass out of the body through peeing. You may need to: Drink more fluid to help pass the stone. In some cases, you may be given fluids through an IV tube put into one of your veins at the hospital. Take medicine for pain. Make changes in your diet to help keep kidney stones from coming back. Sometimes, medical procedures are needed to remove a kidney stone. This may involve: A procedure to break up kidney stones using a beam of light (laser) or shock waves. Surgery to remove the kidney stones. Follow these instructions at home: Medicines Take qzes-qfk-jccohju and prescription medicines only as told by your doctor. Ask your doctor if the medicine prescribed to you requires you to avoid driving or using heavy machinery. Eating and drinking Drink enough fluid to keep your pee pale yellow. You may be told to drink at least 8 10 glasses of water each day. This will help you pass the stone. If told by your doctor, change your diet. This may include: ?Limiting how much salt you eat. ?Eating more fruits and vegetables. ?Limiting how much meat, poultry, fish, and eggs you eat. Follow instructions from your doctor about eating or drinking restrictions. General instructions Collect pee samples as told by your doctor. You may need to collect a pee sample: ?24 hours after a stone comes out. ?8 12 weeks after a stone comes out, and every 6 12 months after that. Strain your pee every time you pee (urinate), for as long as told. Use the strainer that your doctor recommends. Do not throw out the stone. Keep it so that it can be tested by your doctor. Keep all follow-up visits as told by your doctor. This is important. You may need follow-up tests. How is this prevented? To prevent another kidney stone: Drink enough fluid to keep your pee pale yellow. This is the best way to prevent kidney stones. Eat healthy foods. Avoid certain foods as told by your doctor. You may be told to eat less protein. Stay at a healthy weight. Where to find more information National Kidney Foundation (NKF): www.kidney.org Urology Care Foundation (UCF): www.urologyhealth.org Contact a doctor if: You have pain that gets worse or does not get better with medicine. Get help right away if: You have a fever or chills. You get very bad pain. You get new pain in your belly (abdomen). You pass out (faint). You cannot pee. Summary Kidney stones are rock-like masses that form inside of the kidneys. Kidney stones can cause very bad pain and can block the flow of pee. The stones will often pass out of the body through peeing. Drink enough fluid to keep your pee pale yellow. This information is not intended to replace advice given to you by your health care provider. Make sure you discuss any questions you have with your health care provider. Document Released: 09/05/2008 Document Revised: 08/06/2019 Document Reviewed: 08/06/2019 [employer] Patient Education 2019 [employer]. Follow Up Care 01/24/2022 08:47:12 With:JAIME DAO, Marcial Bundy, URL Address: [address] [facility] [address] [place] [address]- When: Unknown [facility] 09-16-2021 Hospital Discharg e instructions Patient Education 09/16/2021 09:50:46 Htzq-Wseb-oy Utereroscopy,Lithotripsy, Stone Extraction, Stent Placement (CUSTOM) [facility] [place], [place] Post-operative Instructions for Ureteroscopy, Laser Lithotripsy, Stone Extraction and Stent Placement There are no incisions or dressings to be concerned with, as the procedure was performed inside the urinary system. For 24 hours after surgery: No driving or operating machinery Do not make important decisions Do not consume alcohol, sleeping pills Stent Placement You may have a stent which spans the distance between your bladder and your kidney, allowing urine to pass through. It prevents blockage from swelling, kidney stones in ureter (tube connecting the kidney to the bladder), or scars. The presence of the stent may cause: Back or side pain, especially with urination Frequent or urgent urination Bladder pressure or pain Blood in urine You may pass stone debris or small blood clots, which is expected. Drinking plenty of water to dilute the urine may help. If there is a thread coming out of urinary channel, be careful not to accidently pull on this, as it is attached to the stent. The stent will most likely be removed in the office during a short procedure in which a scope is placed into the bladder, the stent is grasped and removed. At other times the stent may need to stay longer, either in preparation for other procedures or for other reasons. If it is to remain shelter, however, changes of the stent are required (about every 3-4 months). Diet You may resume your normal diet, but you may want to start slowly and avoid spicy food, caffeine, carbonated beverages and alcohol, especially if you have a stent. Your diet and fluid intake may make irritation from the stent worse. Activity You may resume your normal activities, although you should take it easy on the day of the procedure. Minimizing activity may decrease the back discomfort and irritation from the stent, if present. Medications You may resume your home medications unless instructed otherwise. Hold aspirin, ibuprofen, Coumadin (warfarin) and other blood thinners until your office visit (we will discuss when to resume these medications) Take your prescribed medications as directed, including your antibiotics. You may also be given a prescription for pain medicine or medicines to help with the bladder irritation from stent, if present. Things to watch for which would require an Emergency Room Visit (or call 911) (This is not a complete list) Fever over 101.5 degrees, with or without chills Severe bleeding Severe drug reactions with itching, hives, rash, or severe flank pain Tenderness or swelling or the calves, chest pain, or shortness of breath Please call the office to arrange for your post-operative appointment (with XRAY) [phone] 09/16/2021 09:50:46 Post Op Patient Instructions - FT (CUSTOM) Follow Up Care 09/14/2021 08:44:08 With:Armin Gibbs Address: [facility] [address] [place] [address]- Business (1) When: Unknown Comments:My office will schedule ESWL of his left renal calculus. [facility] 09-14-2021 Hospital Discharg e instructions Patient Education 09/14/2021 08:28:43 Kidney Stones, Dfmj-xb-Gseu Kidney Stones Kidney stones are rock-like masses that form inside of the kidneys. Kidneys are organs that make pee (urine). A kidney stone may move into other parts of the urinary tract, including: The tubes that connect the kidneys to the bladder (ureters). The bladder. The tube that carries urine out of the body (urethra). Kidney stones can cause very bad pain and can block the flow of pee. The stone usually leaves your body (passes) through your pee. You may need to have a doctor take out the stone. What are the causes? Kidney stones may be caused by: A condition in which certain glands make too much parathyroid hormone (primary hyperparathyroidism). A buildup of a type of crystals in the bladder made of a chemical called uric acid. The body makes uric acid when you eat certain foods. Narrowing (stricture) of one or both of the ureters. A kidney blockage that you were born with. Past surgery on the kidney or the ureters, such as gastric bypass surgery. What increases the risk? You are more likely to develop this condition if: You have had a kidney stone in the past. You have a family history of kidney stones. You do not drink enough water. You eat a diet that is high in protein, salt (sodium), or sugar. You are overweight or very overweight (obese). What are the signs or symptoms? Symptoms of a kidney stone may include: Pain in the side of the belly, right below the ribs (flank pain). Pain usually spreads (radiates) to the groin. Needing to pee often or right away (urgently). Pain when going pee (urinating). Blood in your pee (hematuria). Feeling like you may vomit (nauseous). Vomiting. Fever and chills. How is this treated? Treatment depends on the size, location, and makeup of the kidney stones. The stones will often pass out of the body through peeing. You may need to: Drink more fluid to help pass the stone. In some cases, you may be given fluids through an IV tube put into one of your veins at the hospital. Take medicine for pain. Make changes in your diet to help keep kidney stones from coming back. Sometimes, medical procedures are needed to remove a kidney stone. This may involve: A procedure to break up kidney stones using a beam of light (laser) or shock waves. Surgery to remove the kidney stones. Follow these instructions at home: Medicines Take xckw-pkb-dnztqfx and prescription medicines only as told by your doctor. Ask your doctor if the medicine prescribed to you requires you to avoid driving or using heavy machinery. Eating and drinking Drink enough fluid to keep your pee pale yellow. You may be told to drink at least 8 10 glasses of water each day. This will help you pass the stone. If told by your doctor, change your diet. This may include: ?Limiting how much salt you eat. ?Eating more fruits and vegetables. ?Limiting how much meat, poultry, fish, and eggs you eat. Follow instructions from your doctor about eating or drinking restrictions. General instructions Collect pee samples as told by your doctor. You may need to collect a pee sample: ?24 hours after a stone comes out. ?8 12 weeks after a stone comes out, and every 6 12 months after that. Strain your pee every time you pee (urinate), for as long as told. Use the strainer that your doctor recommends. Do not throw out the stone. Keep it so that it can be tested by your doctor. Keep all follow-up visits as told by your doctor. This is important. You may need follow-up tests. How is this prevented? To prevent another kidney stone: Drink enough fluid to keep your pee pale yellow. This is the best way to prevent kidney stones. Eat healthy foods. Avoid certain foods as told by your doctor. You may be told to eat less protein. Stay at a healthy weight. Where to find more information National Kidney Foundation (NKF): www.kidney.org Urology Care Foundation (UCF): www.urologyhealth.org Contact a doctor if: You have pain that gets worse or does not get better with medicine. Get help right away if: You have a fever or chills. You get very bad pain. You get new pain in your belly (abdomen). You pass out (faint). You cannot pee. Summary Kidney stones are rock-like masses that form inside of the kidneys. Kidney stones can cause very bad pain and can block the flow of pee. The stones will often pass out of the body through peeing. Drink enough fluid to keep your pee pale yellow. This information is not intended to replace advice given to you by your health care provider. Make sure you discuss any questions you have with your health care provider. Document Released: 09/05/2008 Document Revised: 08/06/2019 Document Reviewed: 08/06/2019 Elsevier Patient Education 2020 [employer] [facility] Evaluation + Plan note Future Appointments Appointment Date:09/15/2021 04:30:00 PM Scheduled Provider: Location:[facility] Appointment Type:Surgical PAT FT Appointment Date:09/16/2021 08:00:00 AM Scheduled Provider: Location:[facility] Appointment Type:Surgery FT [facility] Evaluation + Plan note Future Appointments Appointment Date:09/16/2021 08:00:00 AM Scheduled Provider: Location:[facility] Appointment Type:Surgery FT [facility] Evaluation + Plan note Future Appointments Appointment Date:11/25/2021 08:00:00 AM Scheduled Provider: Location:[facility] Appointment Type:Surgery FT [facility] Evaluation + Plan note Future Appointments Appointment Date:03/03/2022 03:30:00 PM Scheduled Provider: Location:[facility] Appointment Type:Surgical PAT FT Appointment Date:03/10/2022 11:00:00 AM Scheduled Provider: Location:[facility] Appointment Type:Surgery FT [facility] Evaluation + Plan note Future Appointments Appointment Date:03/10/2022 01:45:00 PM Scheduled Provider: Location:[facility] Appointment Type:Surgery FT [facility] Evaluation + Plan note Future Appointments Appointment Date:02/21/2023 09:30:00 AM Scheduled Provider:Marcial SANDOVAL MD Location:[facility] Appointment Type:URO Office Visit Future Scheduled TestsXR Abdomen 1 View 08/15/22 [facility] Evaluation note Diagnosis Essential (primary) hypertension (CMS/HCC) Unspecified essential hypertension Essential hypertension (CMS/HCC) Unspecified essential hypertension [facility] Diagnosis Essential (primary) hypertension (CMS/HCC)- Primary Unspecified essential hypertension Calculus of kidney Morbid obesity (CMS/HCC) Morbid obesity Screening for prostate cancer Special screening for malignant neoplasm of prostate Essential hypertension (CMS/HCC) Unspecified essential hypertension Essential hypertension (CMS/HCC) Unspecified essential hypertension [facility] Diagnosis Essential (primary) hypertension (CMS/HCC)- Primary Unspecified essential hypertension Calculus of kidney Morbid obesity (CMS/HCC) Morbid obesity Screening for prostate cancer Special screening for malignant neoplasm of prostate Essential hypertension (CMS/HCC) Unspecified essential hypertension Essential hypertension (CMS/HCC) Unspecified essential hypertension [facility] Diagnosis Essential (primary) hypertension (CMS/HCC)- Primary Unspecified essential hypertension Calculus of kidney Morbid obesity (CMS/HCC) Morbid obesity Screening for prostate cancer Special screening for malignant neoplasm of prostate Essential hypertension (CMS/HCC) Unspecified essential hypertension Essential hypertension (CMS/HCC) Unspecified essential hypertension [facility] Narrative No data available for this section [facility] Hospital Discharge instructions No data available for this section [facility] No data available for this section [facility] Summary Purpose Family History No Family History Records FoundNo Family History Records Found No data available for this section No Family History Records FoundNo Family History Records Found Advance Directives No Advanced Directives Records FoundNo Advanced Directives Records FoundNo Advanced Directives Records FoundNo Advanced Directives Records Found Additional Source Comments Care Team (unrecognized sect ion and content) Emotional Support Teacher Relationship Specialty Start Date End Date Jevon Holley MD PCP - General Family Medicine 10/19/22 Toshia Hyman NP [address] [place] [address] Referring Physician Nurse Practitioner 10/19/22 Emotional Support Teacher Relationship Specialty Start Date End Date Jevon Holley MD [address] [place] [address] PCP - General Family Medicine 07/25/23 Toshia Hyman NP [address] [place] [address] Referring Physician Nurse Practitioner 10/19/22 Toshia Hyman NP [address] [place] [address] Nurse Practitioner Family Medicine 07/25/23 Emotional Support Teacher Relationship Specialty Start Date End Date Jevon Holley MD [address] [place] [id number] PCP - General Family Medicine 07/25/23 Toshia Hyman NP [address] [place] [id number] Referring Physician Nurse Practitioner 10/19/22 Toshia Hyman NP [address] [place] [id number] Nurse Practitioner Family Medicine 07/25/23 Emotional Support Teacher Relationship Specialty Start Date End Date Jevon Holley MD [address] [place] [id number] PCP - General Family Medicine 07/25/23 Toshia Hyman NP [address] [place] [phone] Referring Physician Nurse Practitioner 10/19/22 Toshia Hyman NP [address] [place] [phone] Nurse Practitioner Family Medicine 07/25/23 (unrecognized sect ion and content) No Status Records FoundNo Status Records FoundNo Status Records FoundNo Status Records Found INFORMATION SOURCE (unrecogn ized section and content) DATE CREATED AUTHOR 01/26/2022 [facility] DATE CREATED AUTHOR AUTHOR'S ORGANIZ ATION 06/08/2022 [facility] DATE CREATED AUTHOR AUTHOR'S ORGANIZ ATION 02/24/2023 Tank Martinez [facility] DATE CREATED AUTHOR AUTHOR'S ORGANIZ ATION 07/27/2023 [facility]IC Reason for Visit (unrecogniz ed section and content) Reason Comments Med Refill FOR RECORDS PERTAINING TO PATIENTS WHO ARE OR HAVE BEEN ENROLLED IN A CHEMICAL DEPENDENCY/SUBSTANCEABUSE PROGRAM, SOME INFORMATION MAY BE OMITTED. This clinical summary was aggregated from multiple sources. Caution should be exercised in using it in the provision of clinical care. This summary normalizes information from multiple sources, and as a consequence, information in this document may materially change the coding, format and clinical context of patient data. In addition, data may be omitted in some cases. CLINICAL DECISIONS SHOULD BE BASED ON THE PRIMARY CLINICAL RECORDS. [facility] [employer] provides no warranty or guarantee of the accuracy or completeness of information in this document.
[2024-05-18 01:29] VITALS: BP 186/90
--- NOTE | 2024-05-18 01:29 | PC.NURSE ---
Did not take any of his B/P medications today
--- NOTE | 2024-05-18 01:31 | CT_ITS ---
The [address] [address] Patient Name: AYESHA FRANCOIS MRN: [id number] date: 1980 Sex: M Assigned Patient Location: ER Current Patient Location: Accession/Order Number: [id number] Exam Date: 05/18/2024 01:40 Report Date: 05/18/2024 04:11 At the request of: SANDRINE AU Procedure: CT abdomen pelvis wo con EXAM: CT abdomen pelvis wo con HISTORY: upper abd pain COMPARISON: CT abdomen and pelvis examination dated 09/13/2021. TECHNIQUE: Noncontrast axial CT images through the abdomen and pelvis were obtained with coronal and sagittal reformats. Dose reduction techniques were achieved by using automated exposure control and/or adjustment of mA and/or kV according to patient size and/or use of iterative reconstruction technique. FINDINGS: There is a calcified granuloma in the right lobe. There are calcified mediastinal lymph nodes. There is a small hiatal hernia. Abdomen: Please note that the sensitivity for detection of focal lesions or vascular disease is markedly reduced without intravenous contrast. Splenic calcifications are suggestive of prior granulomatous disease. Otherwise, the liver and spleen are unremarkable. There is no intra or extrahepatic biliary duct dilatation. There is cholelithiasis without evidence of acute inflammation. There are bilateral nonobstructive renal calculi measuring up to 0.3 cm on the left. There is colonic diverticulosis without evidence of acute inflammation. The duodenum does not cross the midline. Otherwise, the pancreas, adrenal glands, and bowel loops, including the appendix, are unremarkable. There is no mesenteric or retroperitoneal lymphadenopathy. Pelvis: The bladder and rectum are unremarkable. There is no iliac or inguinal lymphadenopathy. Bone windows show no aggressive osseous lesions. CT/CT abdomen pelvis wo con IMPRESSION: 1. Cholelithiasis without evidence of acute inflammation. 2. Bilateral nonobstructive renal calculi. 3. Colonic diverticulosis without evidence of acute inflammation. 4. Normal appendix. Electronically authenticated by: Toshia TAYLOR Date: 05/18/2024 04:11
--- NOTE | 2024-05-18 01:32 | ED.GENADUL1 ---
HPI HPI - General Adult General Chief complaint: Abdominal Pain Stated complaint: Abdominal Pain Time Seen by Provider: 05/18/24 01:19 Source: patient Mode of arrival: walk-in Limitations: no limitations History of Present Illness HPI narrative: Patient presents with 3-hour history of upper and mid abdominal pain accompanying nausea. Pain does not radiate through to the back. No other complaints are reported. He has a history of hypertension but he did not take his antihypertensives yesterday. Related Data Previous Rx's ?Medication ?Instructions ?Recorded ondansetron 4 mg disintegrating 4 mg PO Q6H PRN Nausea And 05/18/24 tablet Vomiting #10 tabs pantoprazole 40 mg tablet,delayed 40 mg PO DAILY #20 tabs 05/18/24 release (Protonix) Allergies Allergy/AdvReac Type Severity Reaction Status Date / Time No Known Drug Allergies Allergy Verified 05/18/24 01:23 Opioid HPI Opioid Management Most Recent Opioid Data: Last Pain Scale 8 05/18/24 03:13 05/18/24 Last ED Pain Assessment 05/18/24 02:29 Last MAR Pain Assessment 05/18/24 03:13 Review of Systems ROS Status of ROS 10 or more systems reviewed and unremarkable except as noted in history and below PFSH PFS Social History Little interest or pleasure in doing things: not at all Feeling down, depressed, or hopeless: not at all Exam Narrative Exam Narrative: Morbidly obese in appearance showing minimal signs of distress. HEENT exam is normal to inspection. Blood pressure is mildly elevated. The rest of his vitals are fairly stable. There is no pallor or icterus. Neck is supple. Lung sounds are clear to auscultation bilaterally. Heart has a regular rate and rhythm. Abdomen is protuberant soft with tenderness in the epigastrium right upper quadrant. There is no guarding and no rigidity. Organomegaly if present would be difficult to detect due to body habitus. Lower extremities are warm and dry. He does not have calf tenderness. Speech and mentation are clear and intact. There is no facial asymmetry. He moves all extremities actively. Gait is normal. Constitutional Vital Signs, click to edit/add: Last Vital Signs Temp 97.7 F 05/18/24 01:18 Pulse 87 05/18/24 03:19 Resp 18 02/15/25 03:19 BP 168/84 H 05/18/24 03:19 Pulse Ox 98 05/18/24 03:19 O2 Del Method Room Air 05/18/24 03:19 Course Vital Signs Vital signs: Vital Signs Temperature 97.7 F 05/18/24 01:18 Pulse Rate 103 H 05/18/24 01:18 Respiratory Rate 16 05/18/24 01:18 Blood Pressure 185/104 H 05/18/24 01:18 Pulse Oximetry 100 05/18/24 01:18 Oxygen Delivery Method Room Air 05/18/24 01:18 Temperature 97.7 F 05/18/24 01:18 Pulse Rate 87 05/18/24 03:19 Respiratory Rate 18 05/18/24 03:19 Blood Pressure 168/84 H 05/18/24 03:19 Pulse Oximetry 98 05/18/24 03:19 Oxygen Delivery Method Room Air 05/18/24 03:19 Medical Decision Making MDM Narrative Medical decision making narrative: Patient presents with upper abdominal pain after a fairly large and somewhat fatty meal. His workup does not reveal evidence for pancreatitis. He has incidental finding of gallstones but no sign of biliary obstruction or gallbladder inflammation. Incidental tiny kidney stones also noted in both kidneys. Patient did not experience much relief with initial doses of IV Dilaudid and IV Toradol but over the next few hours the pain gradually started to subside such that he was more comfortable. He was also administered IV Protonix and a GI cocktail. My 2 major differentials are gastritis and biliary colic. He feels comfortable enough for discharge and is placed on Zofran and Protonix and advised liquid diet for 24 hours to be gradually advanced as tolerated. He is to return anytime for worsening symptoms. Lab Data Labs: Lab Results 05/18/24 05/18/24 Range/Units 01:55 02:20 WBC 8.9 (4.0-11.0) 10^3/uL RBC 5.65 (4.70-6.10) 10^6/uL Hgb 15.6 (14.0-18.0) g/dL Hct 46.9 (42.0-54.0) % MCV 83.0 (80.0-94.0) fL MCH 27.6 (25.9-34.0) pg MCHC 33.3 (29.9-35.2) g/dL RDW 13.5 (11.0-15.0) % Plt Count 213 (150-450) 10^3/uL MPV 10.2 (9.5-13.5) fL Neut % (Auto) 76.9 H (43.0-75.0) % Lymph % (Auto) 13.9 L (20.5-60.0) % [place] % (Auto) 5.2 (1.7-12.0) % Eos % (Auto) 2.7 (0.9-7.0) % Baso % (Auto) 0.7 (0.2-2.0) % Neut # (Auto) 6.8 H (1.4-6.5) 10^3/uL Lymph # (Auto) 1.2 (1.2-3.8) 10^3/uL [place] # (Auto) 0.5 (0.3-0.8) 10^3/uL Eos # (Auto) 0.2 (0.0-0.7) 10^3/uL Baso # (Auto) 0.1 (0.0-0.1) 10^3/uL Abs Immat Gran (auto) 0.05 H (0.00-0.03) 10^3/uL Imm/Tot Granulo (auto) 0.6 H (0.0-0.5) % Sodium 137 (136-145) mmol/L Potassium 4.4 (3.5-5.1) mmol/L Chloride 101 (98-107) mmol/L Carbon Dioxide 29.5 (21.0-32.0) mmol/L Anion Gap 10.9 BUN 16.0 (7.0-18.0) mg/dL Creatinine 0.95 (0.70-1.30) mg/dL Est GFR ( Amer) >60 (>=60 mL/min/1.73m^2) Est GFR (Non-Af Amer) >60 (>=60 mL/min/1.73m^2) BUN/Creatinine Ratio 16.8 Glucose 139 H (74-106) mg/dL Calcium 8.8 (8.5-10.1) mg/dL Total Bilirubin 0.5 (0.2-1.0) mg/dL Direct Bilirubin 0.1 (0.0-0.2) mg/dL AST 31 (15-37) U/L ALT 48 (16-63) U/L Alkaline Phosphatase 98 (46-116) U/L Total Protein 8.3 H (6.4-8.2) g/dL Albumin 3.8 (3.4-5.0) g/dL Globulin 4.5 g/dL Albumin/Globulin Ratio 0.8 Lipase 37.0 (16.0-77.0) U/L Urine Color Lt. yellow (YELLOW) Urine Clarity Clear (CLEAR) Urine pH 7.5 (5.0-9.0) Ur Specific [place] 1.020 (1.005-1.025) Urine Protein Negative (NEG/TRACE) mg/dL Urine Glucose (UA) Negative (NEGATIVE) mg/dL Urine Ketones Negative (NEGATIVE) mg/dL Urine Occult Blood Negative (NEGATIVE) Urine Nitrite Negative (NEGATIVE) Urine Bilirubin Negative (NEGATIVE) Urine Urobilinogen 0.2 (0.2-1.0) EU/dL Ur Leukocyte Esterase Negative (NEGATIVE) Discharge Plan Discharge Chief Complaint: Abdominal Pain Clinical Impression: Abdominal pain Qualifiers: Abdominal location: upper abdomen, unspecified Qualified Code(s): R10.10 - Upper abdominal pain, unspecified Patient Disposition: Home, Self-Care Time of Disposition Decision: 05:12 Condition: Good Mode of Transportation: Private Vehicle Prescriptions / Home Meds: New ondansetron 4 mg tablet,disintegrating 4 mg PO Q6H PRN (Reason: Nausea And Vomiting) Qty: 10 0RF pantoprazole [Protonix] 40 mg tablet,delayed release (DR/EC) 40 mg PO DAILY Qty: 20 0RF Print Language: Colombian Instructions: Abdominal Pain (ED) Additional Instructions: Liquid diet for 24 hours. Advance diet gradually as tolerated. Avoid fatty, greasy foods. Follow-up with your physician in the next 3 to 5 days. Return anytime for worsening symptoms. Referrals: Toshia Hyman NP [Primary Care Provider] - 1 week
[2024-05-18] MEDS: ONDANSETRON PF 4 MG/2 ML VIAL IV (01:58)
[2024-05-18] MEDS: 0.9 % SODIUM CHLORIDE 1,000 ML 1000 ML IV (01:58)
[2024-05-18] MEDS: HYDROMORPHONE HCL 0.5 MG/0.5 ML SYRINGE IV (01:59)
[2024-05-18 02:07] LABS: Basophils Absolute Auto 0.1 10^3/uL (0.0-0.1); Basophils Percent Auto 0.7 % (0.2-2.0); Eosinophils Absolute Auto 0.2 10^3/uL (0.0-0.7); Eosinophils Percent Auto 2.7 % (0.9-7.0); Hematocrit 46.9 % (42.0-54.0); Hemoglobin 15.6 g/dL (14.0-18.0); Immature Granulocytes Abs Auto 0.05 10^3/uL (0.00-0.03); Immature Granulocytes Pct Auto 0.6 % (0.0-0.5); Lymphocytes Absolute Auto 1.2 10^3/uL (1.2-3.8); Lymphocytes Percent Auto 13.9 % (20.5-60.0); Mean Corpuscular HGB Conc 33.3 g/dL (29.9-35.2); Mean Corpuscular Hemoglobin 27.6 pg (25.9-34.0); Mean Platelet Volume 10.2 fL (9.5-13.5); Monocytes Absolute Auto 0.5 10^3/uL (0.3-0.8); Monocytes Percent Auto 5.2 % (1.7-12.0); Neutrophils Absolute Auto 6.8 10^3/uL (1.4-6.5); Neutrophils Percent Auto 76.9 % (43.0-75.0); Platelet Count 213 10^3/uL (150-450); Red Blood Count 5.65 10^6/uL (4.70-6.10); Red Cell Distribution Width 13.5 % (11.0-15.0); White Blood Count 8.9 10^3/uL (4.0-11.0)
[2024-05-18 02:21] LABS: Alanine Aminotransferase 48 U/L (16-63); Albumin Globulin Ratio 0.8; Albumin Level 3.8 g/dL (3.4-5.0); Alkaline Phosphatase 98 U/L (46-116); Anion Gap 10.9; Aspartate Amino Transferase 31 U/L (15-37); BUN Creatinine Ratio 16.8; Bilirubin Direct 0.1 mg/dL (0.0-0.2); Bilirubin Total 0.5 mg/dL (0.2-1.0); Calcium 8.8 mg/dL (8.5-10.1); Carbon Dioxide 29.5 mmol/L (21.0-32.0); Chloride 101 mmol/L (98-107); Estimated GFR (African America >60 (>=60 mL/min/1.73m^2); Estimated GFR (Non-African Ame >60 (>=60 mL/min/1.73m^2); Globulin 4.5 g/dL; Glucose 139 mg/dL (74-106); Potassium 4.4 mmol/L (3.5-5.1); Sodium 137 mmol/L (136-145); Total Protein 8.3 g/dL (6.4-8.2)
[2024-05-18 02:29] LABS: Bilirubin Urine NEGATIVE (NEGATIVE); Blood Urine NEGATIVE (NEGATIVE); Clarity Urine CLEAR (CLEAR); Color Urine LT. YELLOW (YELLOW); Glucose Urine UA NEGATIVE (NEGATIVE); Ketones Urine NEGATIVE (NEGATIVE); Leukocyte Esterase Urine NEGATIVE (NEGATIVE); Nitrite Urine NEGATIVE (NEGATIVE); Protein Urine NEGATIVE (NEG/TRACE); Urobilinogen Urine 0.2 EU/dL (0.2-1.0); pH Urine 7.5 (5.0-9.0)
--- NOTE | 2024-05-18 02:29 | PC.NURSE ---
Dr aware no change in pain
[2024-05-18 02:32] LABS: Urine Microscopic Indicated NO
[2024-05-18] MEDS: KETOROLAC TROMETHAMINE 30 MG/ML VIAL 15 MG IVP (03:13)
[2024-05-18 03:19] VITALS: BP 168/84; PULSE 87; O2SAT 98
[2024-05-18] MEDS: lidocaine HCL 15 ML, MAG HYDROX/ALUMINUM HYD/SIMETH 30 ML, HYOSCYAMINE SULFATE 0.25 MG PO (05:02)
[2024-05-18] MEDS: PANTOPRAZOLE SODIUM 40 MG VIAL IV (05:02)
[2024-05-18 05:24] VITALS: BP 162/86; PULSE 95; O2SAT 96
== END 2024-05-18 05:27 | disposition home or self-care (01) ==
PROVIDERS: Emergency Provider Emergency Medicine; PCP Nurse Practitioner
DX: R10.10 Upper abdominal pain, unspecified (principal); I10 Essential (primary) hypertension; K80.20 Calculus of gallbladder without cholecystitis without obstruction; N20.0 Calculus of kidney; K57.30 Diverticulosis of large intestine without perforation or abscess without bleeding
CPT/HCPCS: 36415; 74176; 80048; 80076; 81003; 83690; 85025; 96374; 96375; 99284; J1171; J1885; J2405

== ENCOUNTER 2024-08-28 14:58 | Outpatient (OUT) | payer OTHER, SELFPAY ==
[2024-08-28 15:18] LABS: Basophils Absolute Auto 0.1 10^3/uL (0.0-0.1); Basophils Percent Auto 0.9 % (0.2-2.0); Eosinophils Absolute Auto 0.3 10^3/uL (0.0-0.7); Eosinophils Percent Auto 3.3 % (0.9-7.0); Hematocrit 47.4 % (42.0-54.0); Hemoglobin 15.7 g/dL (14.0-18.0); Immature Granulocytes Abs Auto 0.03 10^3/uL (0.00-0.03); Immature Granulocytes Pct Auto 0.4 % (0.0-0.5); Lymphocytes Absolute Auto 2.2 10^3/uL (1.2-3.8); Lymphocytes Percent Auto 28.6 % (20.5-60.0); Mean Corpuscular HGB Conc 33.1 g/dL (29.9-35.2); Mean Corpuscular Hemoglobin 27.5 pg (25.9-34.0); Mean Platelet Volume 9.7 fL (9.5-13.5); Monocytes Absolute Auto 0.6 10^3/uL (0.3-0.8); Monocytes Percent Auto 8.2 % (1.7-12.0); Neutrophils Absolute Auto 4.4 10^3/uL (1.4-6.5); Neutrophils Percent Auto 58.6 % (43.0-75.0); Platelet Count 229 10^3/uL (150-450); Red Blood Count 5.71 10^6/uL (4.70-6.10); Red Cell Distribution Width 14.2 % (11.0-15.0); White Blood Count 7.5 10^3/uL (4.0-11.0)
[2024-08-28 16:13] LABS: Creatinine Urine Random 151.86 mg/dL (20.00-300.00); Microalbumin Urine Random <1.3 mg/dL (<=30.0)
[2024-08-28 16:40] LABS: Bilirubin Urine NEGATIVE (NEGATIVE); Blood Urine NEGATIVE (NEGATIVE); Clarity Urine CLEAR (CLEAR); Color Urine LT. YELLOW (YELLOW); Glucose Urine UA NEGATIVE (NEGATIVE); Ketones Urine NEGATIVE (NEGATIVE); Leukocyte Esterase Urine NEGATIVE (NEGATIVE); Nitrite Urine NEGATIVE (NEGATIVE); Protein Urine NEGATIVE (NEG/TRACE); Specific Gravity Urine 1.025 (1.005-1.025); Urobilinogen Urine 0.2 EU/dL (0.2-1.0)
[2024-08-28 17:01] LABS: Urine Microscopic Indicated NO
[2024-08-28 17:21] LABS: Alanine Aminotransferase 57 U/L (16-63); Albumin Globulin Ratio 0.9; Albumin Level 3.8 g/dL (3.4-5.0); Alkaline Phosphatase 90 U/L (46-116); Aspartate Amino Transferase 17 U/L (15-37); BUN Creatinine Ratio 20.8; Bilirubin Total 0.8 mg/dL (0.2-1.0); Calcium 8.6 mg/dL (8.5-10.1); Carbon Dioxide 27.9 mmol/L (21.0-32.0); Chloride 104 mmol/L (98-107); Chol HDL Ratio 3.8; Cholesterol 161 mg/dL (<=200); Estimated GFR (African America >60 (>=60 mL/min/1.73m^2); Estimated GFR (Non-African Ame >60 (>=60 mL/min/1.73m^2); Glucose 88 mg/dL (74-106); HDL Cholesterol 42 mg/dL (40-60); Potassium 3.9 mmol/L (3.5-5.1); Sodium 143 mmol/L (136-145); Thyroid Stimulating Hormone 2.522 uIU/mL (0.358-3.740); Total Protein 7.8 g/dL (6.4-8.2); Triglycerides 65 mg/dL (<=150)
[2024-08-29 08:09] LABS: PSA, Free 0.39 ng/mL; Prostate Specific Ag 1.7 ng/mL (0.0-4.0)
== END 2024-08-28 14:59 | disposition home or self-care (01) ==
PROVIDERS: PCP Nurse Practitioner; Visit Provider Nurse Practitioner
DX: Z00.00 Encounter for general adult medical examination without abnormal findings (principal); R97.20 Elevated prostate specific antigen [PSA]
CPT/HCPCS: 36415; 80053; 80061; 81003; 82043; 82570; 84153; 84154; 84443; 85025